=== PATIENT | female | born 1980 | race Two or more races ===

== ENCOUNTER 2021-05-08 12:38 | Outpatient (REF) | payer OTHER, SELFPAY | END 2021-05-08 12:39 | disposition home or self-care (01) | LOC: HO.LAB 12:38 | PROVIDERS: Visit Provider Internal Medicine | DX: Z20.822 Contact with and (suspected) exposure to COVID-19 (principal) | CPT/HCPCS: C9803; U0003; U0005 ==

== ENCOUNTER 2021-09-04 05:25 | Emergency (ER) | payer OTHER, SELFPAY ==
--- NOTE | ~2021-09-04 | CT_ITS ---
EXAMINATION: CT ABDOMEN AND PELVIS WITHOUT CONTRAST CLINICAL INFORMATION: Right flank pain COMPARISON: None TECHNIQUE: Multidetector volumetric imaging was performed from the superior aspect of the liver through the pubic symphysis. Sagittal and coronal reformatted images were obtained on the technologist's workstation. This CT examination was performed using dose optimization techniques as appropriate, variously including the following: *Automated exposure control *Adjustment of mA and/or kV according to patient size (this includes techniques or standardized protocols for targeted exams where dose is matched to indication/reason for exam; i.e. extremities or head) *Use of iterative reconstruction technique DLP: 745 mGy-cm FINDINGS: LUNG BASES: The visualized lung bases are unremarkable. LIVER, GALLBLADDER, AND BILIARY TREE: The liver is normal in size, shape, and attenuation. No focal hepatic lesion or biliary ductal dilatation is present. The gallbladder is unremarkable with no evidence of radiopaque gallstones, gallbladder wall thickening, or obvious pericholecystic inflammatory changes. PANCREAS: Unremarkable. SPLEEN: Unremarkable. ADRENAL GLANDS: Unremarkable. KIDNEYS AND URETERS: Kidneys are normal in appearance without evidence of hydronephrosis or perinephric inflammatory changes. No ureterectasis is visualized. No urolithiasis identified. BLADDER: Decompressed. No calculi. GASTROINTESTINAL TRACT: No intestinal dilatation or mural thickening. Normal appearance of the appendix. Normal appearance of the terminal ileum. No free intraperitoneal fluid or gas collections. Normal appearance of the sigmoid and small bowel mesentery is. ABDOMINAL WALL: No significant hernia is appreciated. LYMPH NODES: Normal. VASCULAR: Unremarkable. PELVIC VISCERA: Normal appearance of uterus. No adnexal lesions. A 3 mm rounded hyperdense focus is present within the region of the distal right posterolateral vaginal wall may represent a small Bartholin's gland cyst (series 3 image 88). OSSEOUS STRUCTURES: Minimal multilevel anterior endplate osteophytosis of the visualized thoracic spine. No vertebral body compression deformities. Mild osteitis condense illi. CT/CT abdomen pelvis wo con IMPRESSION: Unenhanced CT of the abdomen and pelvis: *No acute abnormalities identified. *No urolithiasis. No hydronephrosis. Normal appendix. No free intraperitoneal fluid or gas collections.
[2021-09-04 05:31] VITALS: BP 157/95; PULSE 75; RESP 20; TEMP 36.6; O2SAT 98; BMI 33.5
[2021-09-04 05:52] LABS: Hemoglobin 13.2 g/dl (12.0-16.0); Mean Corpuscular HGB Conc 33.8 g/dl (31.0-35.0); Mean Corpuscular Hemoglobin 27.3 pg (27.0-33.0); Mean Corpuscular Volume 80.6 fL (80.0-98.0); Mean Platelet Volume 9.7 fL (9.4-12.3); Platelet Count 319 X10*3/uL (160-400); Red Blood Count 4.84 X10*6/uL (4.20-5.50); White Blood Count 8.4 X10*3/uL (4.8-10.8)
[2021-09-04 06:07] LABS: Appearance Urine HAZY; Color Urine YELLOW; Glucose Urine UA NEG (NEG); Leukocyte Esterase Urine NEG (NEG); Nitrite Urine NEG (NEG); PH 5.5 (5.0-8.0); Specific Gravity - Urine 1.025 (1.005-1.025); Urine Blood NEG (NEG); Urine Ketones NEG (NEG); Urine Protein NEG (NEG-TRACE)
[2021-09-04 06:09] LABS: UPreg QC Valid YES; Urine Pregnancy NEGATIVE (NEGATIVE)
[2021-09-04 06:11] LABS: Alanine Aminotransferase 14 U/L (0-31); Albumin Level 3.9 g/dL (3.5-5.0); Alkaline Phosphatase 98 U/L (39-117); Anion Gap 10 (12-20); Aspartate Amino Transferase 20 U/L (5-31); Bilirubin Total 0.5 mg/dL (0.0-1.0); Blood Urea Nitrogen 15 mg/dL (9-16); Calcium 9.7 mg/dL (8.4-10.2); Carbon Dioxide 28 mmol/L (22-29); Chloride 104 mmol/L (96-108); Creatinine Clr Calc Pharmacy 102.4; Estimated Glomerular Filt Rate > 60; Glucose Random 90 mg/dL (60-115); Potassium 4.3 mmol/L (3.3-5.1); Sodium 138 mmol/L (135-145); Total Protein 7.4 g/dL (6.5-8.0)
[2021-09-04 06:12] VITALS: BP 143/99; PULSE 73; RESP 16; O2SAT 99
--- NOTE | 2021-09-04 06:32 | ED_ITS ---
HPI - Abdominal Pain General Chief Complaint: Abdominal Pain Stated Complaint: abd & lower back pain, diarrhea ; appendicitis ? Time Seen by Provider: 09/04/21 06:04 Source: patient Mode of arrival: ambulatory History of Present Illness HPI narrative: 41-year-old female presents with 2 days of left flank pain that wraps around into the anterior abdomen that has not been associated with any fever, chills, nausea, vomiting, or urinary pain/frequency/burning and patient reports that she has had a few episodes of nonbloody diarrhea. Related Data Allergies Allergy/AdvReac Type Severity Reaction Status Date / Time No Known Allergies Allergy Verified 09/04/21 05:35 Review of Systems Review of Systems Pertinent positives and negatives as stated in HPI 10 point review of systems is otherwise negative. Physical Exam Verdana 4l Vital Signs: Verdana 4d Verdana 4d Vital Signs: Verdana 4d Verdana 4Bd Last Vital Signs Verdana 4d Vice President Of Operations New 4d Vice President Of Operations New 4d Temp 97.8 F 09/04/21 05:31 Vice President Of Operations New 4d Pulse 73 09/04/21 06:12 Vice President Of Operations New 4d Resp 16 09/04/21 06:12 BP 143/99 H 09/04/21 06:12 Pulse Ox 99 09/04/21 06:12 BMI result Body Mass Index 33.5 VITAL SIGNS: Reviewed. GENERAL: Well developed, well nourished, in no acute distress. HEAD: Normocephalic/atraumatic EYES: PERRLA, EOMI OROPHARYNX: no oral lesions noted, posterior pharynx clear LUNGS: Normal breath sounds. No adventitious sounds or accessory muscle use. SpO2<99> CARDIOVASCULAR: Regular rate and rhythm without noted murmurs ABDOMEN: Soft, left flank pain, non-distended with bowel sounds. NEUROLOGIC: Alert and oriented x 4. Strength and sensation to light touch were grossly intact x 4. Course Course Course Narrative: 41-year-old female with history and clinical presentation after review of all investigations suspicious for renal colic, no evidence or findings suggestive of /UTI/diverticulitis/appendicitis. Signed out to Dr Paulino: f/u CT scan. MDM - Abdominal Pain Lab Data Result diagrams: 09/04/21 05:47 09/04/21 05:47 Labs: Lab Results 02/03/22 02/03/22 02/03/22 Range/Units 05:47 05:47 05:56 WBC 8.4 (4.8-10.8) X10*3/uL RBC 4.84 (4.20-5.50) X10*6/uL Hgb 13.2 (12.0-16.0) g/dl Hct 39.0 (37.0-47.0) % MCV 80.6 (80.0-98.0) fL MCH 27.3 (27.0-33.0) pg MCHC 33.8 (31.0-35.0) g/dl RDW 13.0 (11.0-16.0) % Plt Count 319 (160-400) X10*3/uL MPV 9.7 (9.4-12.3) fL Absolute Nucleated RBC 0.000 (0.0-0.012) X10*3/uL Nucleated RBC % (auto) 0.0 (0.0-0.2) /100WBC Sodium 138 (135-145) mmol/L Potassium 4.3 (3.3-5.1) mmol/L Chloride 104 (96-108) mmol/L Carbon Dioxide 28 (22-29) mmol/L Anion Gap 10 L (12-20) BUN 15 (9-16) mg/dL Creatinine 0.77 (0.5-1.4) mg/dL Estim Creat Clear Calc 102.4 Estimated GFR > 60 Random Glucose 90 (60-115) mg/dL Calcium 9.7 (8.4-10.2) mg/dL Total Bilirubin 0.5 (0.0-1.0) mg/dL AST 20 (5-31) U/L ALT 14 (0-31) U/L Alkaline Phosphatase 98 (39-117) U/L Total Protein 7.4 (6.5-8.0) g/dL Albumin 3.9 (3.5-5.0) g/dL Lipase 38 (8-78) U/L Beta HCG, Quant < 2 mIU/mL Urine Color YELLOW Urine Appearance HAZY Urine pH 5.5 (5.0-8.0) Ur Specific Graham 1.025 (1.005-1.025) Urine Protein NEG (NEG-TRACE) MG/DL Urine Glucose (UA) NEG (NEG) MG/DL Urine Ketones NEG (NEG) MG/DL Urine Blood NEG (NEG) Urine Nitrite NEG (NEG) Ur Leukocyte Esterase NEG (NEG) Urine Test (NEGATIVE) 09/04/21 Range/Units 05:56 WBC (4.8-10.8) X10*3/uL RBC (4.20-5.50) X10*6/uL Hgb (12.0-16.0) g/dl Hct (37.0-47.0) % MCV (80.0-98.0) fL MCH (27.0-33.0) pg MCHC (31.0-35.0) g/dl RDW (11.0-16.0) % Plt Count (160-400) X10*3/uL MPV (9.4-12.3) fL Absolute Nucleated RBC (0.0-0.012) X10*3/uL Nucleated RBC % (auto) (0.0-0.2) /100WBC Sodium (135-145) mmol/L Potassium (3.3-5.1) mmol/L Chloride (96-108) mmol/L Carbon Dioxide (22-29) mmol/L Anion Gap (12-20) BUN (9-16) mg/dL Creatinine (0.5-1.4) mg/dL Estim Creat Clear Calc Estimated GFR Random Glucose (60-115) mg/dL Calcium (8.4-10.2) mg/dL Total Bilirubin (0.0-1.0) mg/dL AST (5-31) U/L ALT (0-31) U/L Alkaline Phosphatase (39-117) U/L Total Protein (6.5-8.0) g/dL Albumin (3.5-5.0) g/dL Lipase (8-78) U/L Beta HCG, Quant mIU/mL Urine Color Urine Appearance Urine pH (5.0-8.0) Ur Specific Graham (1.005-1.025) Urine Protein (NEG-TRACE) MG/DL Urine Glucose (UA) (NEG) MG/DL Urine Ketones (NEG) MG/DL Urine Blood (NEG) Urine Nitrite (NEG) Ur Leukocyte Esterase (NEG) Urine Test NEGATIVE (NEGATIVE) Discharge Plan Discharge Clinical Impression: Flank pain, Diarrhea Patient Disposition: Still a Patient PMFSH Past Medical History Source: nursing notes reviewed Social History Social History Advance Directives: No Advance Directives Information Provided: No
[2021-09-04 06:34] LABS: Lipase 38 U/L (8-78)
[2021-09-04 06:39] LABS: HCG Quantitative < 2 mIU/mL
[2021-09-04] MEDS: Acetaminophen 325 MG TABLET 975 MG PO (07:30)
[2021-09-04] MEDS: Ibuprofen 400 MG TABLET PO (07:31)
== END 2021-09-04 07:41 | disposition home or self-care (01) ==
PROVIDERS: Student in an Organized Health Care Education/Training Program; Emergency Provider Emergency Medicine
DX: R10.9 Unspecified abdominal pain (principal); R19.7 Diarrhea, unspecified
CPT/HCPCS: 36415; 74176; 80053; 81003; 81025; 83690; 84702; 85027; 99284

== ENCOUNTER 2021-10-14 08:28 | Outpatient (REF) | payer OTHER, SELFPAY ==
[2021-10-14 08:45] LABS: MANUAL DIFF FLAG NO
[2021-10-14 09:18] LABS: Basophils Absolute Auto 0.1 X10*3/uL (0.0-0.2); Basophils Percent Auto 1.3 % (0-2); Eosinophils Absolute Auto 0.2 X10*3/uL (0.0-0.4); Eosinophils Percent Auto 2.6 % (0-4); Hematocrit 38.7 % (37.0-47.0); Hemoglobin 12.8 g/dl (12.0-16.0); Imm Gran Abs Auto 0.04 X10*3/uL (0.00-0.03); Imm Gran Pct Auto 0.5 % (0.0-0.4); Lymphocytes Absolute Auto 1.9 X10*3/uL (1.2-4.9); Lymphocytes Percent Auto 24.4 % (20-40); Mean Corpuscular HGB Conc 33.1 g/dl (31.0-35.0); Mean Corpuscular Hemoglobin 26.6 pg (27.0-33.0); Mean Corpuscular Volume 80.3 fL (80.0-98.0); Mean Platelet Volume 9.7 fL (9.4-12.3); Monocytes Absolute Auto 0.5 X10*3/uL (0.1-1.2); Monocytes Percent Auto 6.8 % (2-11); Neutrophils Absolute Auto 5.1 x10*3/uL (2.0-8.3); Neutrophils Percent Auto 64.4 % (45-73); Platelet Count 321 X10*3/uL (160-400); Red Blood Count 4.82 X10*6/uL (4.20-5.50); Red Cell Distribution Width 13.2 % (11.0-16.0)
[2021-10-14 09:33] LABS: Estimated Average Glucose 100 mg/dL; Hemoglobin A1c % 5.1 %
[2021-10-14 09:40] LABS: Alanine Aminotransferase 11 U/L (0-31); Albumin Level 3.8 g/dL (3.5-5.0); Alkaline Phosphatase 94 U/L (39-117); Anion Gap 10 (12-20); Aspartate Amino Transferase 17 U/L (5-31); Bilirubin Total 0.3 mg/dL (0.0-1.0); Blood Urea Nitrogen 10 mg/dL (9-16); Calcium 9.1 mg/dL (8.4-10.2); Carbon Dioxide 29 mmol/L (22-29); Chloride 104 mmol/L (96-108); Cholesterol 186 mg/dL; Estimated Glomerular Filt Rate > 60; Glucose Fasting 96 mg/dL (60-99); HDL Cholesterol 38 mg/dL; LDL Cholesterol Calculated 120 mg/dl; Potassium 4.2 mmol/L (3.3-5.1); Sodium 139 mmol/L (135-145); Total Protein 7.3 g/dL (6.5-8.0); Triglycerides 141 mg/dL
[2021-10-14 09:53] LABS: TSH reflex Free T4 2.06 uIU/mL (0.32-4.0)
[2021-10-14 10:12] LABS: Folate 10.3 ng/mL (> or = 4.0); Vitamin B12 438 pg/mL (200-900)
[2021-10-18 14:11] LABS: Vitamin D 25-OH, D2 <4 ng/mL; Vitamin D 25-OH, D3 24 ng/mL; Vitamin D 25-OH, Total 24 ng/mL (30-100)
== END 2021-10-14 08:29 | disposition home or self-care (01) ==
LOC: HO.LAB 08:28
PROVIDERS: PCP Nurse Practitioner Acute Care; Visit Provider Nurse Practitioner Acute Care
DX: I10 Essential (primary) hypertension (principal)
CPT/HCPCS: 36415; 80053; 80061; 82306; 82607; 82746; 83036; 84443; 85025

== ENCOUNTER → 2021-11-27 10:16 | Outpatient (BNVA) | payer OTHER, SELFPAY | PROVIDERS: PCP Nurse Practitioner Acute Care; Visit Provider Surgery Vascular Surgery | DX: Z13.89 Encounter for screening for other disorder (principal) ==

== ENCOUNTER 2022-05-14 13:13 | Outpatient (REF) | payer OTHER, SELFPAY ==
[2022-05-15 08:25] LABS: HBS Num1 1.74 mIU/mL (0-7.99); HBc Num1 0.06 S/CO (0.00-0.79); HBsAGNum1 0.19 S/CO (0.00-0.99); Hepatitis B Core Antibody Nonreactive (Nonreactive); Hepatitis B Surface Antigen Negative (Negative); ~Hepatitis B Surface Antibody NONREACTIVE (Nonreactive)
[2022-05-18 21:42] LABS: Rubeola IgG (Measles) >300.00 AU/mL
== END 2022-05-14 13:14 | disposition home or self-care (01) ==
LOC: HO.LAB 13:13
PROVIDERS: PCP Internal Medicine; Visit Provider Internal Medicine
DX: Z01.84 Encounter for antibody response examination (principal); Z23 Encounter for immunization
CPT/HCPCS: 36415; 86704; 86706; 86735; 86762; 86765; 86787; 87340

== ENCOUNTER 2022-06-10 09:10 | Outpatient (REF) | payer OTHER, SELFPAY ==
[2022-06-13 13:56] LABS: TS Negative Control Passed; TS Panel A 75; TS Panel B 69; TS Positive Control Passed; TSpotTB Positive (Negative)
== END 2022-06-10 09:11 | disposition home or self-care (01) ==
LOC: HO.LAB 09:10
PROVIDERS: PCP Internal Medicine; Visit Provider Internal Medicine
DX: Z11.1 Encounter for screening for respiratory tuberculosis (principal)
CPT/HCPCS: 36415; 86481

== ENCOUNTER 2022-06-15 09:17 | Outpatient (REF) | payer OTHER, SELFPAY ==
--- NOTE | ~2022-06-15 | XR_ITS ---
EXAMINATION: XR CHEST CLINICAL INFORMATION: Latent tuberculosis COMPARISON: None TECHNIQUE: 2 views of the chest were obtained. FINDINGS: The lungs are well-expanded and clear of acute process. Heart size and pulmonary vascularity is normal. No gross bony abnormality seen. XR/XR chest 2V IMPRESSION: Unremarkable chest examination.
== END 2022-06-15 09:18 | disposition home or self-care (01) ==
LOC: HO.XRAY 09:17
PROVIDERS: PCP Internal Medicine; Visit Provider Internal Medicine
DX: Z22.7 Latent tuberculosis (principal)
CPT/HCPCS: 71046

== ENCOUNTER 2022-11-06 08:57 | Outpatient (REF) | payer OTHER, SELFPAY ==
[2022-11-06 10:15] LABS: Alanine Aminotransferase 10 U/L (0-31); Albumin Level 3.8 g/dL (3.5-5.0); Alkaline Phosphatase 92 U/L (39-117); Anion Gap 8 (12-20); Aspartate Amino Transferase 14 U/L (5-31); Bilirubin Total 0.6 mg/dL (0.0-1.0); Blood Urea Nitrogen 14 mg/dL (9-16); Calcium 8.8 mg/dL (8.4-10.2); Carbon Dioxide 29 mmol/L (22-29); Chloride 108 mmol/L (96-108); Cholesterol 189 mg/dL; Estimated Glomerular Filt Rate > 60; Glucose Fasting 85 mg/dL (60-99); HDL Cholesterol 30 mg/dL; LDL Cholesterol Calculated 140 mg/dl; Potassium 4.2 mmol/L (3.3-5.1); Sodium 141 mmol/L (135-145); Triglycerides 98 mg/dL
[2022-11-06 10:25] LABS: Vitamin D 25-OH Total 27.2 ng/mL (>30)
== END 2022-11-06 08:58 | disposition home or self-care (01) ==
LOC: HO.LAB 08:57
PROVIDERS: PCP Internal Medicine; Visit Provider Internal Medicine
DX: Z00.00 Encounter for general adult medical examination without abnormal findings (principal); E55.9 Vitamin D deficiency, unspecified
CPT/HCPCS: 36415; 80053; 80061; 82306

== ENCOUNTER 2023-04-27 13:53 | Outpatient (AMB) | payer OTHER, SELFPAY ==
--- NOTE | 2023-04-27 13:56 | MHC.PC.OV ---
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: No Allergies No Known Allergies Allergy (Verified 04/27/23 14:16) Medication List - Last Reconciled 04/27/23 by YULIA Carnes No Known Home Meds Tobacco use date assessed: 04/27/23 Dental Screening Dental Screen Date: 04/27/23 Did you have a dental visit in the last 12 months?: Yes Did you have a dental problem in the last 6 months where you did not have access to dental care?: No Was dental information given to patient?: Patient has dentist HPI back and vagina pain, scheduled per nurse HPI Details Patient is a 43-year-old female who presents today for the same day visit due to back and pelvic pain for the past [address] Holman. Medical history significant for hypertension, obesity among others. Patient reports that back pain radiate to her pelvic area. Pain seems to be improving slightly although still there. She reports that pain comes in waves. Also describes pain as throbbing sensation. Bilateral back pain radiate to pelvic area. Reports taking Tylenol as needed with very minimal improvement. Last menstruation 1st week of April. Denies urinary symptoms. No blood in urine, no vaginal discharge, no burning with urination. Denies injury. Denies history of kidney stones in the past. Denies STI exposure. Patient is a Vietnamese-speaking and her was helping with interpretation. Patient denies shortness of breath or chest pain. Reports intermittent shortness of breath on exertion for the past 1.5 months since being sick with COVID. 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 How often do you have a drink containing alcohol?: Never Total Score: 0 Score Reviewed/Action Taken: No NICHELLE-7 AMB Questionnaire NICHELLE-7 Date NICHELLE - 7 assessed: 10/20/22 Source: Developed by Drs. Zion Valadez, Lilli Blount, Arpit Ford and colleagues, with an educational elise from [employer] / [email or web address]. Review of Systems Const Denies body aches, Denies chills, Denies fever(s) and Denies headache(s) Eyes Denies change in vision ENT Denies dizziness, Denies otalgia, Denies headache(s), Denies nasal discharge, Denies sinus pain and Denies sore throat Card Denies chest pain, Denies edema, Denies lightheadedness, Denies dyspnea and Reports dyspnea on exertion Resp Denies cough, Denies dyspnea, Reports dyspnea on exertion and Denies wheezing GI Denies abdominal pain, Denies constipation, Denies diarrhea, Denies nausea and Denies vomiting Details: Bilateral low back pain Reports as per HPI, Denies hematuria and Denies dysuria Musc Reports back pain and Denies myalgias Skin/Breast Denies rash Neuro Denies dizziness and Denies headache(s) Aller/Immun Denies wheezing Physical exam (Primary Care) Vital Signs: Last Vital Signs Pulse 91 04/27/23 13:57 BP 170/114 H 04/27/23 14:30 Pulse Ox 100 04/27/23 13:57 Oxygen Delivery Method Room Air 04/27/23 13:57 BMI result Body Mass Index 32.4 Tobacco/Smoking Status: Tobacco use Status Tobacco use date assessed 04/27/23 04/27/23 13:58 Patient Tobacco Use Status Never used Tobacco 04/27/23 13:58 e-Cigarette/Vaping Use Never Used 04/27/23 13:58 Thrive Assessment: Date of Thrive Assessment Date Thrive assessed 10/20/22 04/27/23 13:58 Const General: cooperative and no acute distress Orientation/consciousness: patient oriented x3 HENMT Head: Yes normocephalic and Yes atraumatic Mouth: oropharynx normal and moist mucous membranes Throat: Yes posterior oropharynx normal Eyes General: appearance normal, both eyes and all related structures Pupils: Equal, round and reactive pupils present Neck Neck: Yes normal visual inspection, Yes full ROM and Yes no lymphadenopathy Resp Effort & Inspection: normal respiratory effort and able to speak in complete sentences Auscultation: clear to auscultation bilaterally, no crackles, no rales, no rhonchi and no wheezes Cardio Rate: regular rate Rhythm: regular rhythm Heart sounds: S1 normal heart sound present and S2 normal heart sound present GI Palpation (GI): Soft to palpation, not firm, Tenderness to palpation present (GI) suprapubicly; with no rebound tenderness, no guarding, not rigid and no hepatosplenomegaly Auscultation: normal bowel sounds General: No CVA tenderness Back/Spine/Pelvis Back: No CVA tenderness Thoracic/Lumbar Spine: thoracic and lumbar spine normal to inspection, No paraspinal muscle tenderness, No thoracic spinal tenderness and lumbar spinal tenderness (Distal aspect) Skin General skin exam: no rashes or lesions noted Neuro General: patient oriented x3 Cranial nerves: Yes Equal, round and reactive pupils present Gait exam (Neuro): Normal gait present Extrem General: Yes full ROM and No edema Results AMB Urinalysis, Automated UA Leukoctes 500 Guillermina/uL Last Edit by SILVANO Badillo on 04/27/23 14:17 UA Nitrite Negative Last Edit by SILVANO Badillo on 04/27/23 14:17 UA Urobilinogen 0.2 mg/dL Last Edit by SILVANO Badillo on 04/27/23 14:17 UA Protein 100 mg/dL Last Edit by SILVANO Badillo on 04/27/23 14:17 UA pH 5.5 Last Edit by SILVANO Badillo on 04/27/23 14:17 UA Blood 200 Reginaldo/uL Last Edit by Heidi Pascal SILVANO on 04/27/23 14:17 UA Specific [place] 1.025 Last Edit by SILVANO Badillo on 04/27/23 14:17 UA Ketone Negative Last Edit by SILVANO Badillo on 04/27/23 14:17 UA Bilirubin 0 mg/dL Last Edit by SILVANO Badillo on 04/27/23 14:17 UA Glucose 0 mg/dL Last Edit by Heidi Pascal SILVANO on 04/27/23 14:17 Results Reviewed Results Reviewed: Laboratory Last Values Urine pH (Auto) 5.5 04/27/23 14:03 Specific [place] (Auto) 1.025 04/27/23 14:03 Urine Protein (Auto) 100 mg/dL 04/27/23 14:03 Glucose (UA)(Auto) 0 mg/dL 04/27/23 14:03 Urine Ketones (Auto) Negative 04/27/23 14:03 Urine Blood (Auto) 200 Reginaldo/uL 04/27/23 14:03 Urine Nitrite (Auto) Negative 04/27/23 14:03 Urine Bilirubin (Auto) 0 mg/dL 04/27/23 14:03 Urine Urobilinogen (Auto) 0.2 mg/dL 04/27/23 14:03 Leukocyte Esterase (Auto) 500 Guillermina/uL 04/27/23 14:03 Assessment and Plan Assessment & Plan (1) Pelvic pain: Code(s): R10.2 - Pelvic and perineal pain Plan: Patient presents with low back pain that radiate to her pelvic area for the past 2 months, she reports that this is slightly improving although still there. Physical exam with suprapubic tenderness and lumbar spinal tenderness distal aspect. Urinalysis positive for leukocytes, protein, and blood. Will send urine for culture. Will obtain urgent renal ultrasound to rule out kidney stones. Will start Bactrim b.i.d. for 7 days. Will provide patient with ibuprofen 600 mg every 6 hours as needed for pain. Encouraged to increase fluid consumption. (2) Hypertension: Code(s): I10 - Essential (primary) hypertension Plan: Goal BP equal or less than 140/90, blood pressure high in the office today, also blood pressure has been high in the past as well Will start lisinopril 10 mg daily-educated about possible adverse reactions and when to notify provider Monitor blood pressures at home Follow-up with nurse in 2 weeks for BP recheck Low-sodium diet and weight loss. Signs and symptoms reviewed when to notify provider go to the emergency department Patient agreed with the plan Orders: Orders AMB Urinalysis Automated Today M54.50 - Low back pain, unspecified Urine Culture Today R10.2 - Pelvic and perineal pain US renal BI Today R10.2 - Pelvic and perineal pain Complete Blood Count Auto Diff Today I10 - Essential (primary) hypertension Comprehensive Met. Panel Today I10 - Essential (primary) hypertension Medications: New sulfamethoxazole-trimethoprim 800-160 mg (Bactrim DS) 1 tab PO Q12H 14 tabs 0RF R10.2 - Pelvic and perineal pain ibuprofen 600 mg PO Q8H PRN 20 tabs 0RF pain R10.2 - Pelvic and perineal pain lisinopril 10 mg PO DAILY 30 tabs 2RF I10 - Essential (primary) hypertension Coding Level of Care Code Est Pt Level 4 (65043) Diagnoses Pelvic pain R10.2 Hypertension I10
[2023-04-27 13:57] VITALS: BP 160/120; PULSE 91; O2SAT 100; BMI 32.4
[2023-04-27 14:30] VITALS: BP 170/114
== END 2023-04-27 14:40 | disposition home or self-care (01) ==
PROVIDERS: PCP Internal Medicine; Visit Provider Nurse Practitioner Family
DX: R10.2 Pelvic and perineal pain (principal); I10 Essential (primary) hypertension; M54.50 Low back pain, unspecified
CPT/HCPCS: 81003; 99214

== ENCOUNTER 2023-04-27 14:31 | Outpatient (REF) | payer OTHER, SELFPAY | END 2023-04-27 14:32 | disposition home or self-care (01) | LOC: HO.LAB 14:31 | PROVIDERS: Visit Provider Nurse Practitioner Family | DX: Z13.89 Encounter for screening for other disorder (principal) ==

== ENCOUNTER 2023-04-27 14:53 | Outpatient (REF) | payer OTHER, SELFPAY ==
[2023-04-27 15:06] LABS: MANUAL DIFF FLAG NO
[2023-04-27 15:24] LABS: Basophils Absolute Auto 0.1 X10*3/uL (0.0-0.2); Basophils Percent Auto 1.2 % (0-2); Eosinophils Absolute Auto 0.2 X10*3/uL (0.0-0.4); Eosinophils Percent Auto 1.4 % (0-4); Hemoglobin 12.7 g/dl (12.0-16.0); Imm Gran Abs Auto 0.04 X10*3/uL (0.00-0.03); Imm Gran Pct Auto 0.4 % (0.0-0.4); Lymphocytes Absolute Auto 2.5 X10*3/uL (1.2-4.9); Lymphocytes Percent Auto 23.3 % (20-40); Mean Corpuscular HGB Conc 33.4 g/dl (31.0-35.0); Mean Corpuscular Hemoglobin 26.6 pg (27.0-33.0); Mean Corpuscular Volume 79.5 fL (80.0-98.0); Mean Platelet Volume 9.8 fL (9.4-12.3); Monocytes Absolute Auto 0.7 X10*3/uL (0.1-1.2); Monocytes Percent Auto 6.4 % (2-11); Neutrophils Absolute Auto 7.1 x10*3/uL (2.0-8.3); Neutrophils Percent Auto 67.3 % (45-73); Platelet Count 292 X10*3/uL (160-400); Red Blood Count 4.78 X10*6/uL (4.20-5.50); Red Cell Distribution Width 14.3 % (11.0-16.0); White Blood Count 10.5 X10*3/uL (4.8-10.8)
[2023-04-27 16:16] LABS: Alanine Aminotransferase 11 U/L (0-31); Albumin Level 3.6 g/dL (3.5-5.0); Alkaline Phosphatase 77 U/L (39-117); Anion Gap 9 (12-20); Aspartate Amino Transferase 20 U/L (5-31); Bilirubin Total 0.4 mg/dL (0.0-1.0); Blood Urea Nitrogen 14 mg/dL (9-16); Calcium 8.9 mg/dL (8.4-10.2); Carbon Dioxide 26 mmol/L (22-29); Chloride 107 mmol/L (96-108); Estimated Glomerular Filt Rate > 60; Glucose Random 82 mg/dL (60-115); Potassium 4.2 mmol/L (3.3-5.1); Sodium 138 mmol/L (135-145); Total Protein 7.2 g/dL (6.5-8.0)
== END 2023-04-27 14:54 | disposition home or self-care (01) ==
LOC: HO.LAB 14:53
PROVIDERS: PCP Internal Medicine; Visit Provider Nurse Practitioner Family
DX: R10.2 Pelvic and perineal pain (principal); I10 Essential (primary) hypertension
CPT/HCPCS: 36415; 80053; 85025; 87086

== ENCOUNTER 2023-05-05 09:56 | Outpatient (REF) | payer OTHER, SELFPAY ==
--- NOTE | ~2023-05-05 | US_ITS ---
EXAMINATION: US RETROPERITONEAL LIMITED (RENAL ONLY) CLINICAL INFORMATION: Pelvic and perineal pain. COMPARISON: None available. TECHNIQUE: Real-time ultrasound of the bilateral kidneys. Permanent documented images obtained. FINDINGS: RIGHT KIDNEY: 10.5 x 4.6 x 5.3 cm (SAG x AP x TRV). The kidney is normal in size, contour, and echogenicity. Renal cortical thickness is normal. No calculi or focal parenchymal lesions. No hydronephrosis. LEFT KIDNEY: 12.4 x 4.3 x 5.3 cm (SAG x AP x TRV). The kidney is normal in size, contour, and echogenicity. Renal cortical thickness is normal. No calculi or focal parenchymal lesions. No hydronephrosis. US/US renal BI IMPRESSION: Unremarkable study.
== END 2023-05-05 09:57 | disposition home or self-care (01) ==
LOC: HO.US 09:56
PROVIDERS: PCP Internal Medicine; Visit Provider Nurse Practitioner Family
DX: R10.2 Pelvic and perineal pain (principal)
CPT/HCPCS: 76775

== ENCOUNTER 2023-05-07 15:06 | Emergency (ER) | payer OTHER, SELFPAY ==
[2023-05-07] VITALS (7 sets, daily range): BP systolic 156–184; BP diastolic 93–116; PULSE 66–100; RESP 16–18; TEMP 36.8; O2SAT 98–100; BMI 32.5
--- NOTE | 2023-05-07 15:17 | ED.DIZZY ---
HPI - Dizziness General Chief Complaint: Syncope Stated Complaint: WEAKNESS SYNCOPAL EPISODE Time Seen by Provider: 05/07/23 15:15 Source: patient, EMS and old records reviewed Mode of arrival: EMS Limitations: no limitations History of Present Illness HPI Narrative: a 43-year-old female brought in by ambulance for evaluation after having a generalized weakness with near syncopal episode. Patient was just started on lisinopril about a week ago by her PCP for blood pressure takes 10 mg daily. Patient was at work today had physical activity patient was jumping up and down felt generalized weakness and almost going to pass out no LOC, patient also declined CP, and SOB. Patient been complaining of right-sided abdominal pain for the past 2 months PCP order renal ultrasound yesterday that was reviewed as unremarkable study. Related Data Previous Rx's Medication Instructions Recorded ibuprofen 600 mg tablet 600 mg PO Q8H PRN pain #20 tabs 04/27/23 lisinopril 10 mg tablet 10 mg PO DAILY #30 tabs 04/27/23 sulfamethoxazole 800 1 tab PO Q12H #14 tabs 04/27/23 mg-trimethoprim 160 mg tablet (Bactrim DS) amlodipine 5 mg tablet 5 mg PO DAILY #30 tabs 05/07/23 Allergies Allergy/AdvReac Type Severity Reaction Status Date / Time No Known Allergies Allergy Verified 04/27/23 14:16 Review of Systems Review of Systems: All other systems are reviewed and are negative Constitutional: Reports as per HPI and Reports no additional constitutional complaints Eyes: Reports as per HPI and Reports no additional eye complaints Reports system reviewed and no additional complaints, except as documented Cardiovascular: Reports as per HPI and Reports no additional cardiovascular complaints Respiratory: Reports as per HPI and Reports no additional respiratory complaints Gastrointestinal: Reports as per HPI and Reports no additional gastrointestinal complaints Genitourinary: Reports no additional female genitourinary complaints Musculoskeletal: Reports no additional musculoskeletal complaints Skin/Breast: Reports system reviewed and no additional complaints, except as docu Psychiatric: Reports no additional psychiatric complaints Endocrine: Reports no additional endocrine complaints Hematologic/Lymphatic: Reports no additional hematologic/lymphatic complaints Allergic/Immunologic: Reports no additional allergic/immunologic complaints Reports system reviewed and no additional complaints, except as documented and Reports Abnormal speech present [facility] Past Medical History Medical History Immunization due Cataract fragments in right eye following surgery 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 No pertinent past surgical history Family History Family History Mother Hypertension Diabetes Father Diabetes Cardiomegaly Social History Social History Housing: Apartment Alcohol intake: never Patient Tobacco Use Status: Never used Tobacco Smoked in Last 30 Days: No e-Cigarette/Vaping Use: Never Used Second Hand Smoke Exposure: No Use of substances other than those prescribed or required for medical reasons: No service: No Current occupational status: employed Current occupational exposures/hazards: No Cognitive needs: No Hearing needs: No Vision needs: Yes (glasses) Physical Exam Vital Signs: Vital Signs: Last Vital Signs Pulse 93 05/07/23 15:27 Resp 18 05/07/23 15:27 BP 156/93 H 05/07/23 15:27 Pulse Ox 100 05/07/23 15:27 O2 Del Method Room Air 05/07/23 15:27 BMI result Body Mass Index 32.5 Vital signs have been reviewed and appear to be correct. Blood pressure elevated. Heart rate normal. Respiratory rate normal. Temperature normal. Oxygen saturation normal. Appearance: Alert. Oriented X3. No acute distress. Head: Normal external exam. Normocephalic. Atraumatic. No Mcmanus signs noted. No raccoon eyes noted Eyes: PERRLA. EOMI. Conjunctiva and sclera normal. Eyelids normal. ENT: TM's Normal. Pharynx normal. Uvula midline. Moist mucous membranes. No trismus noted. No drooling noted. No muffled voice noted. Neck: Normal inspection. Neck supple. FROM. No adenopathy. Thyroid Normal. No meningeal signs. No neck mass noted. CVS: Normal heart rate and rhythm. Heart sound normal. No murmurs noted. Pulses normal throughout. Respiratory: No respiratory distress. Painless inspiration. Breath sounds normal. No wheezes/rales/rhonchi noted. Chest nontender. No accessory muscle usage noted or decreased air movement noted. Abdomen: Soft and nontender. Bowel sounds normal in all 4 quadrants. No distention noted. No organomegaly noted. No visible injury noted. Back: No CVA tenderness. Full range of motion noted. Skin: Skin warm and dry. Normal skin color. Normal skin turgor. No rashes/lesions/lacerations noted. Extremities: No lower extremity edema. Extremities exhibit normal range of motion. Extremities nontender. Neuro: Oriented X 3. Cranial nerve exam: II-XII are grossly intact No motor deficit. No sensory deficit. Reflexes normal. Course Course Course Narrative: a 43-year-old female came in after having near syncopal episode, patient has unremarkable physical exam, started on lisinopril for a week 10 mg daily appear that patient's symptoms is secondary to orthostatic hypotension from lisinopril will stop lisinopril and start the patient on amlodipine 5 mg and follow-up with PCP. Medications Administered Discontinued Medications Generic Name Dose Route Start Last Admin Trade Name Freq PRN Reason Stop Dose Admin Sodium Chloride 1,000 mls @ 999 mls/hr 05/07/23 15:15 05/07/23 15:36 Ns IV 05/07/23 16:15 999 mls/hr .Q1H1M ONE Administration Sodium Chloride 1,000 mls @ 999 mls/hr 05/07/23 15:21 05/07/23 16:37 Ns IV 05/07/23 16:21 999 mls/hr .Q1H1M ONE Administration Medical Decision Making Differential Diagnosis Differential Diagnoses: The differential diagnosis associated with the presentation includes ( orthostatic hypotension, dehydration, electrolyte abnormality, severe anemia, lisinopril side effect, UTI, ACS.) Admission/Observation Consideration of admission/observation: Escalation of care including admission/observation considered Lab Data MDM Lab Attestation statement: I reviewed the patient's lab results. 05/07/23 16:15 05/07/23 16:15 Labs: Lab Results 05/07/23 05/07/23 Range/Units 16:14 16:15 WBC 10.5 (4.8-10.8) X10*3/uL RBC 4.65 (4.20-5.50) X10*6/uL Hgb 12.5 (12.0-16.0) g/dl Hct 36.9 L (37.0-47.0) % MCV 79.4 L (80.0-98.0) fL MCH 26.9 L (27.0-33.0) pg MCHC 33.9 (31.0-35.0) g/dl RDW 14.5 (11.0-16.0) % Plt Count 280 (160-400) X10*3/uL MPV 10.0 (9.4-12.3) fL Immature Gran % (Auto) 0.3 (0.0-0.4) % Neut % (Auto) 69.9 (45-73) % Lymph % (Auto) 19.9 L (20-40) % Tyrrell % (Auto) 7.0 (2-11) % Eos % (Auto) 1.6 (0-4) % Baso % (Auto) 1.3 (0-2) % Lymph # (Auto) 2.1 (1.2-4.9) X10*3/uL Tyrrell # (Auto) 0.7 (0.1-1.2) X10*3/uL Eos # (Auto) 0.2 (0.0-0.4) X10*3/uL Baso # (Auto) 0.1 (0.0-0.2) X10*3/uL Abs Immat Gran (auto) 0.03 (0.00-0.03) X10*3/uL Absolute Neuts (auto) 7.3 (2.0-8.3) x10*3/uL Absolute Nucleated RBC 0.000 (0.0-0.012) X10*3/uL Nucleated RBC % (auto) 0.0 (0.0-0.2) /100WBC Sodium 142 (135-145) mmol/L Potassium 4.3 (3.3-5.1) mmol/L Chloride 112 H (96-108) mmol/L Carbon Dioxide 25 (22-29) mmol/L Anion Gap 9 L (12-20) BUN 17 H (9-16) mg/dL Creatinine 0.69 (0.5-1.4) mg/dL Estim Creat Clear Calc 114.2 Estimated GFR > 60 Random Glucose 86 (60-115) mg/dL Calcium 8.5 (8.4-10.2) mg/dL Total Bilirubin 0.1 (0.0-1.0) mg/dL Direct Bilirubin < 0.2 (0.0-0.5) mg/dL AST 18 (5-31) U/L ALT 12 (0-31) U/L Alkaline Phosphatase 81 (39-117) U/L Troponin I High Sens 3.1 (<3.5-17.0) ng/L B-Natriuretic Peptide 216 H (<100) pg/mL Total Protein 7.0 (6.5-8.0) g/dL Albumin 3.6 (3.5-5.0) g/dL Lipase 65 (8-78) U/L Urine Color Yellow Urine Appearance Clear Urine pH 7.0 (5.0-9.0) Ur Specific [place] 1.010 (1.005-1.025) Urine Protein 30 (1+) H (Neg-Trace) mg/dL Urine Glucose (UA) Negative (Negative) mg/dL Urine Ketones Negative (Negative) mg/dL Urine Blood Moderate (2+) H (Negative) Urine Nitrite Negative (Negative) Ur Leukocyte Esterase Trace H (Negative) Urine RBC 6-10 H (0-2) /HPF Urine WBC 0-5 (0-5) /HPF Ur Squamous Epith Cells 6-10 (0-2) /HPF Urine Bacteria Trace (None Seen) Hyaline Casts 3-5 (0-2) /LPF Urine Test NEGATIVE (NEGATIVE) Influenza Type A (PCR) NEGATIVE (Negative) Influenza Type B (PCR) NEGATIVE (Negative) RSV RNA Qual (PCR) NEGATIVE (Negative) SARS-CoV-2 RNA (RT-PCR) NEGATIVE (Negative) Independent Interpretation I performed an independent interpretation of an: EKG ( Normal sinus rhythm at 86 beats per minutes, left axis deviation, normal intervals, no ST-T changes.) and Plain X-Ray ( chest: Unremarkable chest x-ray.) Interpretation: Radiology Impression Discussion of test interpretation with radiology: I have reviewed the radiologist's reading. Discharge Plan Discharge Clinical Impression: Orthostatic syncope Patient Disposition: Home, Self-Care Instructions: Syncope (ED) Additional Instructions: stop taking lisinopril 10 mg daily ( the new medicine for your high blood pressure). And take the new prescription as instructed. Prescriptions: New amlodipine 5 mg tablet 5 mg PO DAILY Qty: 30 0RF Rx Instructions: a stop taking lisinopril. No Action sulfamethoxazole-trimethoprim [Bactrim DS] 800-160 mg tablet 1 tab PO Q12H Qty: 14 0RF ibuprofen 600 mg tablet 600 mg PO Q8H PRN (Reason: pain) Qty: 20 0RF lisinopril 10 mg tablet 10 mg PO DAILY Qty: 30 2RF
--- NOTE | 2023-05-07 15:23 | PC.NURSE ---
Patient arrived via ems after feeling weak and bouncing on a bounce house. Patient and daughter report that they are unsure if she passed but if she did it was only for 2-3 seconds. Denies pain or discomfort, sob, or chest pain. Reports was was dx with htn last week and was started on lisinopril
[2023-05-07 16:24] LABS: MANUAL DIFF FLAG NO
[2023-05-07 16:25] LABS: Basophils Absolute Auto 0.1 X10*3/uL (0.0-0.2); Basophils Percent Auto 1.3 % (0-2); Eosinophils Absolute Auto 0.2 X10*3/uL (0.0-0.4); Eosinophils Percent Auto 1.6 % (0-4); Hematocrit 36.9 % (37.0-47.0); Hemoglobin 12.5 g/dl (12.0-16.0); Imm Gran Abs Auto 0.03 X10*3/uL (0.00-0.03); Imm Gran Pct Auto 0.3 % (0.0-0.4); Lymphocytes Absolute Auto 2.1 X10*3/uL (1.2-4.9); Lymphocytes Percent Auto 19.9 % (20-40); Mean Corpuscular HGB Conc 33.9 g/dl (31.0-35.0); Mean Corpuscular Hemoglobin 26.9 pg (27.0-33.0); Mean Corpuscular Volume 79.4 fL (80.0-98.0); Monocytes Absolute Auto 0.7 X10*3/uL (0.1-1.2); Neutrophils Absolute Auto 7.3 x10*3/uL (2.0-8.3); Neutrophils Percent Auto 69.9 % (45-73); Platelet Count 280 X10*3/uL (160-400); Red Blood Count 4.65 X10*6/uL (4.20-5.50); Red Cell Distribution Width 14.5 % (11.0-16.0); White Blood Count 10.5 X10*3/uL (4.8-10.8)
[2023-05-07 16:27] LABS: Appearance Urine Clear; Color Urine Yellow; Glucose Urine UA Negative (Negative); Leukocyte Esterase Urine Trace (Negative); Nitrite Urine Negative (Negative); UMIC TRIGGER UACC YES; Urine Blood Moderate (2+) (Negative); Urine Ketones Negative (Negative); Urine Protein 30 (1+) mg/dL (Neg-Trace)
[2023-05-07 16:32] LABS: Bacteria Urine Trace (None Seen); WBC Urine 0-5 /HPF (0-5)
[2023-05-07 16:46] LABS: Troponin-I High Sensitivity 3.1 ng/L (<3.5-17.0)
--- NOTE | 2023-05-07 17:26 | PC.NURSE ---
Patient reports feeling better after completion of first bag of fluids, vss.
--- NOTE | 2023-05-07 18:46 | PC.NURSE ---
Resting comfortably, breathing even and unlabored
[2023-05-07 19:44] LABS: Troponin-I High Sensitivity 4.2 ng/L (<3.5-17.0)
--- NOTE | 2023-05-07 21:21 | PC.NURSE ---
BP elevated 164/102 and HR 81 at time of discharge. Discussed with and he will order 1 dose 5mg amlodipine for patient now and she will be able to discharge after she receives medication.
== END 2023-05-07 21:50 | disposition home or self-care (01) ==
PROVIDERS: Emergency Provider Emergency Medicine; PCP Internal Medicine
DX: I95.1 Orthostatic hypotension (principal); Z79.899 Other long term (current) drug therapy; Z11.52 Encounter for screening for COVID-19; Z20.828 Contact with and (suspected) exposure to other viral communicable diseases
CPT/HCPCS: 0241U; 36415; 71045; 80048; 80076; 81001; 81025; 83690; 83880; 84484; 85025; 93005; 96360; 96361; 99284; 99285

== ENCOUNTER 2023-05-27 13:09 | Outpatient (AMB) | payer OTHER, SELFPAY ==
--- NOTE | 2023-05-27 13:11 | MHC.PC.OV ---
Vital Signs 05/27/23 13:12 05/27/23 13:21 Height 5 ft 5 in Weight 186 lb BMI 30.9 BP 144/88 H 120/80 Blood Pressure Location Lt brachial Lt brachial Position Sitting Sitting Pulse 88 Pulse Source Pulse Oximeter Pulse Oximetry (%) 98 Oxygen Delivery Method Room Air Intake Visit Reasons: Ongoing pelvic & perineal pain Intake Note: Patient is here today for ongoing pelvic, perineal pain radiating to lower back, on going for three months Counter Manager Required: Yes Counter Manager Language: Awnings Mechanic Name: Fausto (friend) Information Interpreted: non-clinical & clinical Doctor Of Osteopathy: Present Accompanied by: Friend Allergies No Known Allergies Allergy (Verified 05/27/23 15:11) Medication List - Last Reconciled 05/27/23 by Renzo Perez MD amlodipine 5 mg PO DAILY cyclobenzaprine 10 mg PO BEDTIME ibuprofen 600 mg PO Q8H PRN lisinopril 10 mg PO DAILY meloxicam 15 mg PO DAILY Tobacco use date assessed: 05/27/23 Dental Screening Dental Screen Date: 05/27/23 Did you have a dental visit in the last 12 months?: Yes Did you have a dental problem in the last 6 months where you did not have access to dental care?: No Was dental information given to patient?: Patient has dentist HPI Ongoing pelvic & perineal pain HPI Details 43 yr old female presents to the office to discuss her sx of back pain. She is accompanied by a male who is translating. Patient reports sx of back pain for the past three months. The pain is in the lower back, radiating to the area of the abdomen below the umbilicus. Pain is worse on bending forwards. She is a preschool disability teacher and sx are worse, when she has to bend and take care of young kids. No difficulties passing urine. She reports no symptoms of pelvic or vaginal pain. Since onset of sx she has had an ultrasound of the kidneys, Chest X ray and blood work. They have been unremarkable. Currently she is on no medications. Compliant with her regular medications. 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 No pertinent past surgical history Family History Mother Hypertension Diabetes Father Diabetes Cardiomegaly Social History Housing: Apartment Alcohol intake: never Patient Tobacco Use Status: Never used Tobacco e-Cigarette/Vaping Use: Never Used Second Hand Smoke Exposure: No service: No Current occupational status: employed Current occupational exposures/hazards: No Cognitive needs: No Hearing needs: No Vision needs: Yes (glasses) Questionnaire Thrive Questionnaire Date Thrive assessed: 10/20/22 NICHELLE-7 AMB Questionnaire NICHELLE-7 Date NICHELLE - 7 assessed: 10/20/22 Source: Developed by Drs. Zion Valadez, Lilli Blount, Arpit Ford and colleagues, with an educational elise from [employer]. Physical exam (Primary Care) Vital Signs: Last Vital Signs Pulse 88 05/27/23 13:12 BP 120/80 05/27/23 13:21 Pulse Ox 98 05/27/23 13:12 Oxygen Delivery Method Room Air 05/27/23 13:12 BMI result Body Mass Index 30.9 Tobacco/Smoking Status: Tobacco use Status Tobacco use date assessed 05/27/23 05/27/23 13:20 Patient Tobacco Use Status Never used Tobacco 05/27/23 13:20 e-Cigarette/Vaping Use Never Used 05/27/23 13:20 Thrive Assessment: Date of Thrive Assessment Date Thrive assessed 10/20/22 05/27/23 13:20 Const General: cooperative and healthy appearing Nutritional Appearance: well nourished Orientation/consciousness: patient oriented x3 Limitations: no limitations HENMT Head: Yes normal to inspection Eyes General: appearance normal, both eyes and all related structures Neck Neck: Yes normal visual inspection Chest Chest palpation & inspection: normal palpation of entire chest wall Resp Effort & Inspection: normal respiratory effort Back/Spine/Pelvis Other: No spinal tenderness. No paraspinal spasm Neuro General: patient oriented x3 Results Reviewed Results Reviewed: Lab shows elevated BNP. US kidney is normal. Assessment and Plan Assessment & Plan (1) Low back pain: Code(s): M54.50 - Low back pain, unspecified Plan: Sx could represent muscular pain. BW to rule out inflammation, and PT eval suggested. Meloxicam and cyclobenzaprine has been added. To return in three weeks for a follow up. Orders: Orders B Type Natriuretic Peptide Today M54.50 - Low back pain, unspecified Erythrocyte Sedimentation Rate Today M54.50 - Low back pain, unspecified PT Evaluation and Treatment Today M54.50 - Low back pain, unspecified Medications: New cyclobenzaprine 10 mg PO BEDTIME 14 tabs 0RF meloxicam 15 mg PO DAILY 14 tabs 0RF Coding Level of Care Code Est Pt Level 4 (60442) Diagnoses Low back pain M54.50
[2023-05-27 13:12] VITALS: BP 144/88; PULSE 88; O2SAT 98; BMI 30.9
[2023-05-27 13:21] VITALS: BP 120/80
== END 2023-05-27 14:28 | disposition home or self-care (01) ==
PROVIDERS: PCP Internal Medicine; Visit Provider Internal Medicine
DX: M54.50 Low back pain, unspecified (principal)
CPT/HCPCS: 99214

== ENCOUNTER 2023-06-08 16:16 | Outpatient (AMB) | payer OTHER, SELFPAY ==
--- NOTE | 2023-06-08 16:20 | A.OFFPC_ITS ---
Vital Signs 06/08/23 16:21 06/09/23 09:44 Height 5 ft 5 in Weight 189 lb BMI 31.4 BP 176/120 H 170/100 H Blood Pressure Location Lt brachial Lt brachial Position Sitting Sitting Pulse 76 Pulse Source Pulse Oximeter Pulse Oximetry (%) 99 Oxygen Delivery Method Room Air Intake Visit Reasons: [facility] ED F/U-Syncope Intake Note: Patient here for [facility] ED f/u Syncope, ? if had MMR vaccine Technical Applications Scientist Required: No Accompanied by: Spouse Allergies No Known Allergies Allergy (Verified 06/08/23 16:45) Medication List - Last Reconciled 06/08/23 by Shawna Sy MD amlodipine 5 mg PO DAILY Tobacco use date assessed: 05/27/23 Dental Screening Dental Screen Date: 06/08/23 Did you have a dental visit in the last 12 months?: Yes Did you have a dental problem in the last 6 months where you did not have access to dental care?: No Was dental information given to patient?: Patient has dentist HPI HPI Comments History of Present Illness Details This is a 43-year-old female with hypertension and latent tuberculosis by blood test that comes today for follow-up on blood pressure which has been elevated. She went to ER due to an episode of near-syncope in which was associated with tachycardia and generalized weakness. Holter monitor will be order. On amlodipine 5 mg for blood pressure which she took few minutes ago. We will increase amlodipine to 10 mg. She also complains of lumbar pain that does not radiate to the legs and will have x-ray of lumbar spine and physical therapy. Has latent tuberculosis by blood test that was done a year ago. Was given isoniazid with vitamin B6 which she did not took. She agrees on been referred to [facility] tuberculosis [facility]. Denies any fever, night sweats or cough. Accompanied by . 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 No pertinent past surgical history Family History Mother Hypertension Diabetes Father Diabetes Cardiomegaly Social History Housing: Apartment Alcohol intake: never Patient Tobacco Use Status: Never used Tobacco e-Cigarette/Vaping Use: Never Used Second Hand Smoke Exposure: No service: No Current occupational status: employed Current occupational exposures/hazards: No Cognitive needs: No Hearing needs: No Vision needs: Yes (glasses) Questionnaire Thrive Questionnaire Date Thrive assessed: 10/20/22 NICHELLE-7 AMB Questionnaire NICHELLE-7 Date NICHELLE - 7 assessed: 10/20/22 Source: Developed by Drs. Zion Valadez, Lilli Blount, Arpit Ford and colleagues, with an educational elise from [employer]. Review of Systems Const All systems reviewed & are unremarkable except as noted in HPI and below Eyes Reports no additional complaints, Denies change in vision and Denies other visual disturbances Card Denies chest pain at rest, Denies chest pain with activity, Reports rapid heart rate, Denies edema, Denies irregular heart rhythm, Denies claudication, Denies dyspnea, Denies dyspnea on exertion, Denies orthopnea, Denies paroxysmal nocturnal dyspnea and Denies slow heart rate Resp Denies cough, Denies dyspnea and Denies dyspnea on exertion GI Denies abdominal pain, Denies change in bowel habits, Denies excessive flatus, Denies nausea and Denies vomiting Denies urinary incontinence, Denies urinary hesitancy and Denies urinary urgency Musc Denies abnormal gait, Reports back pain, Denies atrophy, Denies deformity and Denies limited range of motion Skin/Breast Denies bleeding lesions, Denies changing lesions and Denies rash Neuro Denies abnormal gait and Denies lack of coordination Physical exam (Primary Care) Vital Signs: Last Vital Signs Pulse 76 06/08/23 16:21 BP 176/120 H 06/08/23 16:21 Pulse Ox 99 06/08/23 16:21 Oxygen Delivery Method Room Air 06/08/23 16:21 BMI result Body Mass Index 31.4 Tobacco/Smoking Status: Tobacco use Status Tobacco use date assessed 05/27/23 06/08/23 16:26 Patient Tobacco Use Status Never used Tobacco 06/08/23 16:26 e-Cigarette/Vaping Use Never Used 06/08/23 16:26 Thrive Assessment: Date of Thrive Assessment Date Thrive assessed 10/20/22 06/08/23 16:26 Eyes General: appearance normal, both eyes and all related structures Eyelids: Yes eyelids normal Conjunctivae: conjunctivae normal Neck Neck: Yes normal visual inspection and Yes supple Resp Effort & Inspection: normal respiratory effort Auscultation: clear to auscultation bilaterally Cardio Jugular venous distension: no JVD Rate: regular rate Rhythm: regular rhythm Heart sounds: S1 normal heart sound present and S2 normal heart sound present Extrem General: Yes full ROM Office Procedures Flu Questionnaire Does the patient have a severe egg allergy?: No Immunizations flu vacc [id number] 6mos up(PF) 60 mcg(15 mcgx4)/0.5 mL IM syringe Performing Provider: Shawna Sy MD [facility] Documented (not given) by: SILVANO Sood on 06/08/23 16:57 Reason Not Given: Not Given Assessment and Plan Assessment & Plan (1) Hypertension: Code(s): I10 - Essential (primary) hypertension Plan: Increase amlodipine to 10 mg. Recheck blood pressure with nurse navigator in 3 weeks. Blood pressure goal is equal or less than 130/80. (2) Latent tuberculosis by blood test: Code(s): Z22.7 - Latent tuberculosis Plan: Referred to [facility] tuberculosis [facility]. (3) Lumbar pain: Code(s): M54.50 - Low back pain, unspecified Plan: X-ray ordered. Start physical therapy for (4) Tachycardia: Code(s): R00.0 - Tachycardia, unspecified Plan: Holter monitor ordered. Orders: Orders Influenza [id number] Immunization 06/08/23 Z23 - Encounter for immunization XR lumbar spine 2-3V 06/08/23 M54.50 - Low back pain, unspecified ECG holter monitor 48 hour 06/08/23 R00.0 - Tachycardia, unspecified PT Evaluation and Treatment 06/08/23 M54.50 - Low back pain, unspecified Referrals Pulmonology Referral Z22.7 - Latent tuberculosis Medications: New amlodipine 10 mg PO DAILY 90 days 90 tabs 1RF Discontinued amlodipine a stop taking lisinopril. Discontinued Reason: Patient Completed Course 5 mg PO DAILY 30 tabs 0RF Coding Level of Care Code Est Pt Level 4 (02502) Diagnoses Hypertension I10 Latent tuberculosis by blood test Z22.7 Lumbar pain M54.50 Tachycardia R00.0 Time Spent (min) 23
[2023-06-08 16:21] VITALS: BP 176/120; PULSE 76; O2SAT 99; BMI 31.4
[2023-06-09 09:44] VITALS: BP 170/100
== END 2023-06-08 16:55 | disposition home or self-care (01) ==
PROVIDERS: PCP Internal Medicine; Visit Provider Internal Medicine
DX: I10 Essential (primary) hypertension (principal); Z22.7 Latent tuberculosis; M54.50 Low back pain, unspecified; R00.0 Tachycardia, unspecified
CPT/HCPCS: 99214

== ENCOUNTER 2023-06-17 08:59 | Outpatient (AMB) | payer OTHER, SELFPAY ==
[2023-06-17 09:08] VITALS: BP 146/94; BMI 31.2
--- NOTE | 2023-06-17 09:08 | A.OFFVIS_ITS ---
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 It's intermittent in nature lasting few seconds and occurs 3x/day. it is not associated with constipation, dysuria, no urinary frequency or incontinence, no n/v, no feverishness or chills. 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 No pertinent past surgical history Family History Mother Hypertension Diabetes Father Diabetes Cardiomegaly Social History Housing: Apartment Alcohol intake: never Patient Tobacco Use Status: Never used Tobacco e-Cigarette/Vaping Use: Never Used Second Hand Smoke Exposure: No service: No Current occupational status: employed Current occupational exposures/hazards: No Cognitive needs: No Hearing needs: No Vision needs: Yes (glasses) Female Reproductive History Menstrual Date of last menstrual period: 05/29/23 Review of Systems Const All systems reviewed & are unremarkable except as noted in HPI and below Physical Exam Vital Signs: Last Vital Signs BP 146/94 H 06/17/23 09:08 BMI result Body Mass Index 31.2 General: Yes no CVA tenderness External Female Exam: normal external appearance and normal appearance of the urethra Speculum Exam - Vagina: normal appearance of the vagina, normal palpation, no lesions and no masses Speculum Exam - Cervix: normal appearance of the cervix, normal palpation, no lesions, no masses and nontender Bimanual exam- vagina & uterus: normal bimanual exam, normal palpation, uterine size normal, normal palpation, uterine shape normal, No Cervical tenderness present and non-tender Bimanual Exam- Adnexa, other: normal adnexae Back/Spine/Pelvis Back: no CVA tenderness Assessment & Plan Assessment & Plan (1) Pelvic pain: Code(s): R10.2 - Pelvic and perineal pain Plan: Urine test done was negative. GC and chlamydia taken and pelvic ultrasound ordered. Discussed with the patient the differential diagnosis of pelvic pain including but not limited to adnexal, uterine masses, pelvic infections (PID), GI the (Irritable bowel syndrome, diverticulitis, others), musculoskeletal, myofascial pain abdominal wall , adhesions, endometriosis, psychological and others causes. Will check results and treat accordingly. All questions answered, the patient verbalized understanding. Instructed the patient to schedule follow-up appointment in 2 weeks (2) Microscopic hematuria: Code(s): R31.29 - Other microscopic hematuria Plan: Urine dip showed microscopic hematuria, will send urine for culture and repeat urine dip in 2 weeks. If urine culture is negative and microscopic hematuria is persistent, will refer to Urology Orders: Orders US pelvic and transvaginal Today R10.2 - Pelvic and perineal pain Coding Level of Care Code New Pt Level 3 (54588) Diagnoses Pelvic pain R10.2 Microscopic hematuria R31.29
== END 2023-06-17 09:39 | disposition home or self-care (01) ==
PROVIDERS: PCP Internal Medicine; Visit Provider Obstetrics & Gynecology
DX: R10.2 Pelvic and perineal pain (principal); R31.29 Other microscopic hematuria; Z32.02 Encounter for pregnancy test, result negative
CPT/HCPCS: 99203

== ENCOUNTER 2023-06-17 08:59 | Outpatient (REF) | payer OTHER, SELFPAY ==
[2023-06-17 13:37] LABS: CT PCR NOT DETECTED (Not Detect.); NG PCR NOT DETECTED (Not Detect.)
== END 2023-06-17 09:00 | disposition home or self-care (01) ==
LOC: HO.LNP 08:59
PROVIDERS: PCP Internal Medicine; Visit Provider Obstetrics & Gynecology
DX: R31.29 Other microscopic hematuria (principal); R10.2 Pelvic and perineal pain
CPT/HCPCS: 0353U; 81002; 81025; 87086

== ENCOUNTER 2023-06-17 10:05 | Outpatient (AMB) | payer OTHER, SELFPAY ==
--- NOTE | 2023-06-17 10:09 | AM.OFFVISNUR ---
Intake Intake Visit Reasons: Flu Shot Allergies No Known Allergies Allergy (Verified 06/17/23 09:12) Office Procedures Flu Questionnaire Does the patient have a severe egg allergy?: No Does the patient have severe life threatening allergies?: No Does the patient have a fever or illness today?: No Has the patient ever had Guillain-Gardiner Syndrome?: No Has the patient ever had any past reaction to a flu shot?: No Immunizations flu vacc [id number] 6mos up(PF) 60 mcg(15 mcgx4)/0.5 mL IM syringe Performing Provider: Shawna Sy MD Performing Location: [facility] Administered by: Shaylee Hernandez RN on 06/17/23 10:16 Dose Route Admin Location Dispensed Lot Number Expiration Date NDC Land Commissioner 0.5 mL IM Left Deltoid 0.5 mL [id number] 01/30/24 83488-999-12 Table8 VIS Given Date VIS Provided VIS Publication Date 06/17/23 Single Vaccine 21 Eligibility Eligibility Date Funding Source Not [facility] Eligible 06/17/23 Private Coding Assessment & Plan Assessment & Plan Orders: Orders Influenza 3112-0925 Immunization Today Z23 - Encounter for immunization
== END 2023-06-17 10:20 | disposition home or self-care (01) ==
PROVIDERS: PCP Internal Medicine; Visit Provider Internal Medicine
DX: Z23 Encounter for immunization (principal)
CPT/HCPCS: 90471; 90686

== ENCOUNTER → 2023-06-21 11:27 | Outpatient (REF) | payer OTHER, SELFPAY ==
--- NOTE | 2023-06-21 11:29 | HM_ITS ---
* Total monitoring time 2 days. * Underlying rhythm is sinus. Average ventricular rate 93/Min. Range 75 to 137/Min. * Rare supraventricular and ventricular ectopy. * No sustained arrhythmias. * No significant pauses or AV blocks. * No patient markers or events in diary. MTDD
== END ==
LOC: HO.CARD 11:27
PROVIDERS: PCP Internal Medicine; Visit Provider Internal Medicine
DX: R00.0 Tachycardia, unspecified (principal); I49.3 Ventricular premature depolarization
CPT/HCPCS: 93225

== ENCOUNTER → 2023-06-21 11:29 | Outpatient (BNV) | payer OTHER, SELFPAY | PROVIDERS: PCP Internal Medicine; Visit Provider Internal Medicine | DX: I47.10 Supraventricular tachycardia, unspecified (principal) | CPT/HCPCS: 93227 ==

== ENCOUNTER 2023-07-16 11:19 | Outpatient (REF) | payer OTHER, SELFPAY ==
--- NOTE | ~2023-07-16 | US_ITS ---
EXAMINATION: US PELVIS CLINICAL INFORMATION: Pelvic and perineal pain. COMPARISON: CT abdomen and pelvis 09/04/2021. TECHNIQUE: Ultrasound of the pelvis is performed using both transabdominal and transvaginal transducers along with Doppler. Transvaginal imaging is performed due to inadequate visualization transabdominally. FINDINGS: UTERUS: The uterus is anteverted and measures 8.2 x 4.9 x 6.1 cm. The double wall endometrial thickness is 0.9 mm. The uterus is smooth in contour and has normal myometrial echogenicity. A single fibroid is noted on the right measuring 1.4 x 1.2 x 1.0 cm. Nabothian cysts are seen in the cervix with the largest measuring 1.2 cm. Some have associated calcifications. ADNEXA: Both ovaries are visualized. There is normal color flow to the adnexa. There is no ovarian torsion. There is no pelvic ascites or fluid collection. Right ovary measures 2.8 x 2.0 x 1.8 cm for a volume of 5.3 mL. Left ovary measures 2.6 x 1.3 x 1.9 cm for a volume of 3.4 mL. US/US pelvic and transvaginal IMPRESSION: 1. Uterine fibroid. 2. Nabothian cysts.
== END 2023-07-16 11:20 | disposition home or self-care (01) ==
LOC: HO.US 11:19
PROVIDERS: PCP Internal Medicine; Visit Provider Obstetrics & Gynecology
DX: R10.2 Pelvic and perineal pain (principal)
CPT/HCPCS: 76830; 76856

== ENCOUNTER 2023-07-23 10:20 | Outpatient (AMB) | payer OTHER, SELFPAY ==
--- NOTE | 2023-07-23 10:20 | MHC.OFFVIS ---
Intake Intake Visit Reasons: TV US follow up Event Marketing Assistant Required: Yes Event Marketing Assistant Language: Greenlandic Allergies No Known Allergies Allergy (Verified 07/23/23 10:20) Is last menstrual period known: Yes Last menstrual period: 07/20/23 Post menopausal: No HPI TV US follow up HPI Details This is a tele visit to discuss an ultrasound that was ordered by Dr. Alex after visit with him in June the patient had been seen as she describes it for problem with lowered pelvic pain. She also had cultures for infection done and I urinalysis was sent because there was microscopic hematuria noted. The patient did not wish to speak with Dr. Alex today and was assigned to nm. 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 No pertinent past surgical history Family History Mother Hypertension Diabetes Father Diabetes Cardiomegaly Social History Housing: Apartment Alcohol intake: never Patient Tobacco Use Status: Never used Tobacco e-Cigarette/Vaping Use: Never Used Second Hand Smoke Exposure: No service: No Current occupational status: employed Current occupational exposures/hazards: No Cognitive needs: No Hearing needs: No Vision needs: Yes (glasses) Female Reproductive History Menstrual Duration of menses: <3 days Date of last menstrual period: 07/20/23 control method: none Results Reviewed Results Reviewed: Patient: Courtney Hampton MR#: [id number] : 1980 Acct:[id number] Age/Sex: 43 ADM Date: 07/16/23 Loc: HO.US Attending Dr: César Alex MD Ordering Physician: César Alex MD Date of Service: 07/16/23 Procedure(s): US pelvic and transvaginal Accession Number(s): [id number] cc: Shawna Queen MD; César Alex MD~ EXAMINATION: US PELVIS CLINICAL INFORMATION: Pelvic and perineal pain. COMPARISON: CT abdomen and pelvis 09/04/2021. TECHNIQUE: Ultrasound of the pelvis is performed using both transabdominal and transvaginal transducers along with Doppler. Transvaginal imaging is performed due to inadequate visualization transabdominally. FINDINGS: UTERUS: The uterus is anteverted and measures 8.2 x 4.9 x 6.1 cm. The double wall endometrial thickness is 0.9 mm. The uterus is smooth in contour and has normal myometrial echogenicity. A single fibroid is noted on the right measuring 1.4 x 1.2 x 1.0 cm. Nabothian cysts are seen in the cervix with the largest measuring 1.2 cm. Some have associated calcifications. ADNEXA: Both ovaries are visualized. There is normal color flow to the adnexa. There is no ovarian torsion. There is no pelvic ascites or fluid collection. Right ovary measures 2.8 x 2.0 x 1.8 cm for a volume of 5.3 mL. Left ovary measures 2.6 x 1.3 x 1.9 cm for a volume of 3.4 mL. US/US pelvic and transvaginal IMPRESSION: 1. Uterine fibroid. 2. Nabothian cysts. Dictated By: Ramesh Graham MD Signed By: <Electronically signed by Ramesh Graham MD in OV> 07/22/232228 DD/ 1159 TD/TT: County Auditor: CURT Name: Courtney Hampton Age/Sex: 43/F : 1980 Unit#: [id number] Attend Dr: César Alex MD Re06/17/23 Status: DEP REF Location: [facility] Disch: Specimen: [id number] Collected: 06/17/23 Status: COMP Req#: [id number] Received: 06/17/23120 Source: [facility] Sp Desc: Clean Cat Subm Dr: César Alex MD Ordered: Urine Culture Procedure Result Verified Site Urine Culture Final 06/18/23 Report Result < 10,000 cfu/ml Name: Courtney Hampton Age/Sex: 43/F : 1980 Unit#: [id number] Attend Dr: César Alex MD Re06/17/23 Status: DEP REF Location: [facility] Disch: SPEC : [id number] CARMEN: 06/17/23 STATUS: COMP REQ : [id number] RECD: 06/17/23 [facility] DR: César Alex MD COMP: 06/17/23 ENTERED: 06/17/23 [facility] DR: Shawna Queen MD ORDERED: CT NG by PCR QUERIES: CT NG Source: Vaginal Test Result Flag Reference Site CT PCR NOT DETECTED Not Detect. A not detected test result does not exclude the possibility of infection because test results can be affected by improper specimen collection, concurrent antibiotic therapy, or the number of organisms in the specimen which may be below the sensitivity of the test. As with many diagnostic tests, results from the Xpert CT/NG assay should be interpreted in conjunction with other laboratory and clinical data available to the clinician. Xpert CT/NG performance has not been evaluated in patients less than 14 years of age. The assay should not be used for the evaluation of suspected sexual abuse or for other medico-legal indications. Additional testing is recommended in any circumstance when false positive or false negative results could lead to adverse medical, social or psychological consequences. NG PCR NOT DETECTED Not Detect. A not detected test result does not exclude the possibility of infection because test results can be affected by improper specimen collection, concurrent antibiotic therapy, or the number of organisms in the specimen which may be below the sensitivity of the test. As with many diagnostic tests, results from the Xpert CT/NG assay should be interpreted in conjunction with other laboratory and clinical data available to the clinician. Xpert CT/NG performance has not been evaluated in patients less than 14 years of age. The assay should not be used for the evaluation of suspected sexual abuse or for other medico-legal indications. Additional testing is recommended in any circumstance when false positive or false negative results could lead to adverse medical, social or psychological consequences. Assessment & Plan Assessment & Plan (1) Pelvic pain: Code(s): R10.2 - Pelvic and perineal pain (2) Fibroid uterus: Comment: 1 small, 1.2 cm Code(s): D25.9 - Leiomyoma of uterus, unspecified Plan This tele visit tele visit was conducted in Greenlandic with video there was some freezing of the image occasionally. The patient told me that she had been seen because she was having pelvic pain down low she felt that it was very severe and constant for about 2 months she says it is a little bit better now. She gets more or less regular periods she is not contraceptive thing and she is sexually active she is open to if it occurs. She is 43 years old and has had 2 children delivered vaginally. The pain that she was experiencing and still sometimes has she felt it as constant and lower down in the front of her abdomen. She also says that it was worse when she has sex with her partner and he enters from behind and moves forward. She says that that did not hurt her in the past. I reviewed her symptoms and her test results I did review the ultrasound which showed a small 1.2 cm fibroid and I explained about fibroids and that that could present some discomfort but was not large enough to warrant any kind of intervention. Discussed that there sometimes can be some cyclic changes that occur that might impact on Women's experience of pain throughout their cycle related to ovulation and pre menstrual E but she did not experience it that way. I also compared her previous CT scan that had been done in 2021 to check for the possibility of kidney stones and that was a completely negative benign exam as well. I also reviewed the urinalysis which showed less than 10,000 colony count. I reviewed that basically the findings were not very significant at this point but she may want to keep track of her cycles and see if there is any [place] to when she has the pain that could be explained. Discussed alternating positions for comfort with sexual intimacy. Reviewed that fibroids can grow and if they become very large then they can become problematic but still no intervention usually is recommended for 1 this small. Telehealth Telehealth Location of provider rendering services: practice address Location of patient: other Patient Identification confirmed using: Name, : Yes Telehealth method: video Patient verbally consented to treatment: Yes Patient verbally consented to billing insurance company: Yes Patient informed of any privacy concerns related to visit: Yes Coding Level of Care Code Tele Est Pt Level 3 (58980) Diagnoses Pelvic pain R10.2 Fibroid uterus D25.9 Time Spent (min) 35 Comment 5cr/25 speaking w pt ,video, 5 charting
== END 2023-07-23 11:16 | disposition home or self-care (01) ==
LOC: HO.HWSM 10:20
PROVIDERS: PCP Internal Medicine; Visit Provider Advanced Practice Midwife
DX: R10.2 Pelvic and perineal pain (principal); D25.9 Leiomyoma of uterus, unspecified
CPT/HCPCS: 99213

== ENCOUNTER → 2023-07-23 10:20 | Outpatient (BNVA) | payer OTHER, SELFPAY | PROVIDERS: PCP Internal Medicine; Visit Provider Advanced Practice Midwife ==

== ENCOUNTER 2024-02-29 08:02 | Outpatient (AMB) | payer BC, SELFPAY ==
[2024-02-29 08:15] VITALS: BP 126/82; BMI 31.4
--- NOTE | 2024-02-29 08:15 | MHC.PC.OV ---
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 Accompanied by: Spouse Allergies No Known Allergies Allergy (Verified 02/29/24 08:25) Medication List - Last Reconciled 02/29/24 by Shawna Sy MD No Known Home Meds Tobacco use date assessed: 02/29/24 Dental Screening Dental Screen Date: 02/29/24 Did you have a dental visit in the last 12 months?: No Did you have a dental problem in the last 6 months where you did not have access to dental care?: No Was dental information given to patient?: Patient has dentist HPI HPI Comments History of Present Illness Details This is a 44-year-old female with hypertension and nephrolithiasis that comes accompanied by for her physical exam. Pap smear done November 2023 at [facility] showed mild inflammation and they recommended colposcopy and biopsy. I will refer her to [facility]. Has never had a mammogram. Has never had a colonoscopy and she does prefer to do the Cologuard. Blood pressure stable. Needs ultrasound of the kidneys to check her kidney stones. Complains of muscle cramps and hand paresthesias. Also has venous insufficiency and would like referral for vascular surgery. She also complains of sore throat and started an unknown antibiotic and feels somewhat improved. 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 1. Little interest or pleasure in doing things: not at all 2. Feeling down, depressed, or hopeless: not at all 3. Trouble falling or staying asleep, or sleeping too much: not at all 4. Feeling tired or having little energy: not at all 5. Poor appetite or overeating: not at all 6. Feeling bad about yourself - or that you are a failure or have let yourself or your family down: not at all 7. Trouble concentrating on things, such as reading the newspaper or watching television: not at all 8. Moving or speaking so slowly that other people could have noticed. Or the opposite - being so fidgety or restless that you have been moving around a lot more than usual: not at all 9. Thoughts that you would be better off or of hurting yourself in some way: not at all Total score: 0 Depression Screening Interpretation: Negative Depression Screening Done: Yes 41112 - PHQ-9 Billing: Yes Source: Developed by Drs. Zion Valadez, Lilli Blount, Arpit Ford and colleagues, with an educational elise from [employer]. Thrive Questionnaire Date Thrive assessed: 02/29/24 I am a: Patient What is your living situation today?: I have a steady place to live Within the past 12 months, did the food you bought not last and you didn't have the money to get more?: Never true Within the past 12 months, did you worry whether your food would run out before you got money to buy more?: Never true Do you have trouble paying for medicines?: No Do you have trouble getting transportation to medical appointments?: No Do you have trouble paying your heating and electricity bill?: No Do you have trouble taking care of your child, family member or friend?: No Do you have trouble with day-to-day activities such as bathing, preparing meals, shopping, managing finances, etc.?: No Are you currently unemployed and looking for a job?: No Are you interested in more education?: No Please select the resources that you would like help with: None Currently or been in a relationship where the following occur: No concerns reported THRIVE Score: 0 AUDIT C Alcohol Use Questionnaire (AUDIT-C) 1. How often do you have a drink containing alcohol?: Never Total Score: 0 Score Reviewed/Action Taken: No NICHELLE-7 AMB Questionnaire NICHELLE-7 Date NICHELLE - 7 assessed: 02/29/24 Feeling nervous, anxious, or on edge: 0 = Not at all Not being able to stop or control worryin = Not at all Worrying too much about different things: 0 = Not at all Trouble relaxin = Not at all Being so restless that it is hard to sit still: 0 = Not at all Becoming easily annoyed or irritable: 0 = Not at all Feeling afraid as if something awful might happen: 0 = Not at all Total NICHELLE-7 score (0-4 normal; 5-9 mild; 10-14 moderate; 15-21 severe): 0 Source: Developed by Drs. Zion Valadez, Lilli Blount, Arpit Ford and colleagues, with an educational elise from [employer]. NICHELLE-7 Assessment Billing NICHELLE-7 Assessment Tool: NICHELLE-7 Assessment 97391 Review of Systems Const All systems reviewed & are unremarkable except as noted in HPI and below Card Denies chest pain at rest, Denies chest pain with activity, Denies edema, Denies irregular heart rhythm, Denies claudication, Denies dyspnea, Denies dyspnea on exertion, Denies orthopnea, Denies paroxysmal nocturnal dyspnea and Denies slow heart rate Resp Denies cough, Denies dyspnea and Denies dyspnea on exertion GI Denies abdominal pain, Denies change in bowel habits, Denies excessive flatus, Denies nausea and Denies vomiting Neuro Denies behavioral changes and Denies lack of coordination Psych Denies behavioral changes Physical exam (Primary Care) Vital Signs: Last Vital Signs BP 126/82 02/29/24 08:15 BMI result Body Mass Index 31.4 Tobacco/Smoking Status: Tobacco use Status Tobacco use date assessed 02/29/24 02/29/24 08:22 Patient Tobacco Use Status Never used Tobacco 02/29/24 08:22 e-Cigarette/Vaping Use Never Used 02/29/24 08:22 PHQ-9: PHQ-9 Score PHQ-9: Total score 0 02/29/24 08:28 Depression Screening Interpretation: Negative Thrive Assessment: Date of Thrive Assessment Date Thrive assessed 02/29/24 02/29/24 08:22 Currently or been in a relationship where the following occur: No concerns reported [facility] Head: Yes normal to inspection, Yes normocephalic and Yes atraumatic Ears: external ears normal General nose exam: Normal external nose present and No nasal discharge present Face and sinus: Yes sinuses nontender Mouth: lip normal Eyes General: appearance normal, both eyes and all related structures Eyelids: Yes eyelids normal Conjunctivae: conjunctivae normal Neck Neck: Yes normal visual inspection and Yes supple Resp Effort & Inspection: normal respiratory effort Auscultation: clear to auscultation bilaterally Cardio Jugular venous distension: no JVD Rate: regular rate Rhythm: regular rhythm Heart sounds: S1 normal heart sound present and S2 normal heart sound present GI Inspection: Yes normal to inspection Palpation (GI): Soft to palpation and nontender Auscultation: normal bowel sounds Skin General skin exam: no rashes or lesions noted Neuro General: no focal motor deficits Extrem General: Yes full ROM Psych Appearance: grossly normal Assessment and Plan Assessment & Plan (1) Physical exam: Code(s): Z00.00 - Encounter for general adult medical examination without abnormal findings Plan: Repeat in a year. (2) Abnormal Pap smear of cervix: Code(s): R87.619 - Unspecified abnormal cytological findings in specimens from cervix uteri Plan: Referred to OBGYN. (3) Muscle cramps: Code(s): R25.2 - Cramp and spasm Plan: Check magnesium. (4) URI (upper respiratory infection): Code(s): J06.9 - Acute upper respiratory infection, unspecified Plan: Start amoxicillin. (5) Paresthesia of hand, bilateral: Code(s): R20.2 - Paresthesia of skin Plan: Nerve conduction study ordered. (6) Venous (peripheral) insufficiency: Code(s): I87.2 - Venous insufficiency (chronic) (peripheral) Plan: Referred to vascular surgery. (7) Nephrolithiasis: Code(s): N20.0 - Calculus of kidney Plan: Ultrasound renal ordered. Orders: Orders NE nerve conduction velocity Today R20.2 - Paresthesia of skin Magnesium Today R25.2 - Cramp and spasm US renal BI Today N20.0 - Calculus of kidney MM screening mammo BI Today Z12.31 - Encounter for screening mammogram for malignant neoplasm of breast Vitamin D 25-OH Total Today E55.9 - Vitamin D deficiency, unspecified Vitamin B12 and Folate Today E53.8 - Deficiency of other specified B group vitamins, R20.2 - Paresthesia of skin Lipid Panel Today Z00.00 - Encounter for general adult medical examination without abnormal findings Comprehensive [place]. Panel Fast Today Z00.00 - Encounter for general adult medical examination without abnormal findings Referrals COMPENSATION AND BENEFITS ADMINISTRATOR Referral R87.619 - Unspecified abnormal cytological findings in specimens from cervix uteri Vascular Surgery Referral I87.2 - Venous insufficiency (chronic) (peripheral) Cologuard Test Z12.11 - Encounter for screening for malignant neoplasm of colon, Z12.12 - Encounter for screening for malignant neoplasm of rectum Medications: New amoxicillin 500 mg PO Q12H 10 caps 0RF 5 days J06.9 - Acute upper respiratory infection, unspecified candesartan-hydrochlorothiazid 32-25 mg 1 tab PO DAILY 90 tabs 1RF 90 days Coding Level of Care Code Est Pt Level 4 (09290) Est Pt Prev Care 40-64y(32436) Diagnoses Physical exam Z00.00 Abnormal Pap smear of cervix R87.619 Muscle cramps R25.2 URI (upper respiratory infection) J06.9 Paresthesia of hand, bilateral R20.2 Venous (peripheral) insufficiency I87.2 Nephrolithiasis N20.0 Additional Codes NICHELLE-7 Assessment Billing - NICHELLE-7 Assessment Tool: NICHELLE-7 Assessment 39326 ([id number]) Time Spent (min) 40
== END 2024-02-29 08:44 | disposition home or self-care (01) ==
PROVIDERS: Visit Provider Internal Medicine
DX: Z00.00 Encounter for general adult medical examination without abnormal findings (principal); R87.619 Unspecified abnormal cytological findings in specimens from cervix uteri; R25.2 Cramp and spasm; J06.9 Acute upper respiratory infection, unspecified; R20.2 Paresthesia of skin; I87.2 Venous insufficiency (chronic) (peripheral); N20.0 Calculus of kidney
CPT/HCPCS: 99214; 99396

== ENCOUNTER 2024-03-04 10:53 | Outpatient (REF) | payer BC, SELFPAY ==
[2024-03-04 12:03] LABS: Alanine Aminotransferase 13 U/L (0-31); Albumin Level 3.6 g/dL (3.5-5.0); Alkaline Phosphatase 78 U/L (39-117); Anion Gap 10 (12-20); Aspartate Amino Transferase 17 U/L (5-31); Bilirubin Total 0.4 mg/dL (0.0-1.0); Blood Urea Nitrogen 12 mg/dL (9-16); Carbon Dioxide 27 mmol/L (22-29); Chloride 107 mmol/L (96-108); Cholesterol 200 mg/dL (<200); Estimated Glomerular Filt Rate > 60; Glucose Fasting 105 mg/dL (60-99); HDL Cholesterol 36 mg/dL (>40); LDL Cholesterol Calculated 140 mg/dL (<100); Magnesium 1.9 mg/dL (1.6-2.6); Potassium 3.7 mmol/L (3.3-5.1); Sodium 140 mmol/L (135-145); Total Protein 7.4 g/dL (6.5-8.0); Triglycerides 121 mg/dL (<150)
[2024-03-04 12:20] LABS: Vitamin D 25-OH Total 37.3 ng/mL (>30)
[2024-03-04 12:33] LABS: Folate 9.9 ng/mL (> or = 4.0); Vitamin B12 851 pg/mL (200-900)
== END 2024-03-04 10:54 | disposition home or self-care (01) ==
LOC: HO.LAB 10:53
PROVIDERS: PCP Internal Medicine; Visit Provider Internal Medicine
DX: Z00.00 Encounter for general adult medical examination without abnormal findings (principal); Z13.6 Encounter for screening for cardiovascular disorders; E55.9 Vitamin D deficiency, unspecified; E53.8 Deficiency of other specified B group vitamins; R20.2 Paresthesia of skin; R25.2 Cramp and spasm
CPT/HCPCS: 36415; 80053; 80061; 82306; 82607; 82746; 83735

== ENCOUNTER → 2024-03-17 08:00 | Outpatient (BNV) | payer BC, SELFPAY | PROVIDERS: PCP Internal Medicine; Visit Provider Radiology Diagnostic Radiology | DX: Z12.31 Encounter for screening mammogram for malignant neoplasm of breast (principal) | CPT/HCPCS: 77063; 77067 ==

== ENCOUNTER 2024-03-17 08:10 | Outpatient (REF) | payer BC, SELFPAY ==
--- NOTE | ~2024-03-17 | MM_ITS ---
EXAMINATION: MM SCREENING DIGITAL BREAST TOMOSYNTHESIS, BILATERAL CLINICAL INFORMATION: Screening. Asymptomatic. COMPARISON: Mammography: This is a baseline mammogram. TECHNIQUE: Digital breast tomosynthesis is performed in both the craniocaudal and mediolateral oblique views along with computer-aided detection (CAD). Synthesized 2D images are generated from the tomosynthesis. FINDINGS: There are scattered areas of fibroglandular density (ACR BI-RADS breast composition Category b). There are no significant masses, abnormal calcifications, or other abnormalities. MM/MM tomosynthesis screening BI IMPRESSION: No mammographic evidence of malignancy. ASSESSMENT: BI-RADS BI-RADS 1 - Negative RECOMMENDATION: Routine annual mammography screening. 1 year F/U This examination should not preclude the clinical evaluation of a suspicious palpable abnormality. This patient's information was entered into a reminder system with a target due date for their next mammogram. Electronically signed by: Lissette Barrera MD 04/15/2024 03:15 PM EDT
--- NOTE | ~2024-03-17 | US_ITS ---
EXAMINATION: US RETROPERITONEAL COMPLETE (RENAL) CLINICAL INFORMATION: Renal calculus. COMPARISON: Renal ultrasound 05/05/2023, CT abdomen and pelvis 09/04/2021. TECHNIQUE: Real-time imaging of the kidneys FINDINGS: RIGHT KIDNEY: 12.0 x 4.8 x 6.2 cm (SAG x AP x TRV). The kidney is normal in size, contour, and echogenicity. Renal cortical thickness is normal. No calculi or focal parenchymal lesions. No hydronephrosis. LEFT KIDNEY: 10.8 x 4.2 x 5.6 cm (SAG x AP x TRV). The kidney is normal in size, contour, and echogenicity. Renal cortical thickness is normal. No calculi or focal parenchymal lesions. There is mild pelvic fullness but no gross hydronephrosis. US/US renal BI IMPRESSION: No renal calculi are seen. There is mild fullness of the left renal pelvis but no gross hydronephrosis. Electronically signed by: Ramesh Graham MD 04/04/2024 12:35 AM EDT
== END 2024-03-17 08:11 | disposition home or self-care (01) ==
LOC: HO.MAMMO 08:10
PROVIDERS: PCP Internal Medicine; Visit Provider Internal Medicine
DX: N20.0 Calculus of kidney (principal); Z12.31 Encounter for screening mammogram for malignant neoplasm of breast
CPT/HCPCS: 76775; 77063; 77067

== ENCOUNTER 2024-04-20 10:20 | Outpatient (REF) | payer BC, SELFPAY ==
--- NOTE | ~2024-04-20 | US_ITS ---
EXAMINATION: US LOWER EXTREMITY VENOUS (REFLUX EXAM), BILATERAL CLINICAL INFORMATION: Chronic venous insufficiency with lower extremity varicose veins, pain COMPARISON: None. TECHNIQUE: Color flow triplex imaging and compression Doppler was performed to evaluate both the deep and the superficial systems bilaterally. To evaluate the superficial system, the examination was performed in the upright position. Color-flow Doppler ultrasound and compression ultrasound were utilized. In addition, maneuvers were utilized to demonstrate reflux. FINDINGS: 1. DEEP VENOUS ULTRASOUND OF THE RIGHT LOWER EXTREMITY: Common Femoral Vein: Compressible, normal respiratory variation and augmented flow. Femoral Vein: Compressible, normal color flow and augmentation. Popliteal Vein: Compressible, normal augmentation. Deep Reflux: There is no evidence of reflux in the deep system in either the common femoral vein, superficial femoral or the popliteal vein. There is no evidence of a Cruz's cyst. 2. SUPERFICIAL ULTRASOUND WITH DOPPLER OF RIGHT LOWER EXTREMITY: GREAT SAPHENOUS VEIN: Saphenofemoral Junction: 0.7 cm; Reflux: 0 ms Proximal Thigh: 0.3 cm; Reflux: 0 ms Mid Thigh: 0.3 cm; Reflux: 0 ms Distal Thigh: 0.3 cm; Reflux: 0 ms At Knee: 0.3 cm; Reflux: 0 ms Proximal Calf: 0.1 cm; Reflux: 0 ms Mid Calf: 0.1 cm; Reflux: 0 ms Distal Calf: 0.2 cm; Reflux: 0 ms DUPLICATED MEDIAL GREAT SAPHENOUS VEIN: Diameter: None imaged Reflux: NA DUPLICATED LATERAL GREAT SAPHENOUS VEIN: Diameter: None imaged Reflux: NA SMALL SAPHENOUS VEIN: Saphenopopliteal Junction: 0.1 cm; Reflux: 0 ms Proximal: 0.2 cm; Reflux: 0 ms Distal: 0.2 cm; Reflux: 0 ms VEIN OF GIACOMINI: Size: NA Reflux: NA PERFORATORS: Location: Posterior calf into the small saphenous vein Size: 0.2 cm Reflux: 2876 ms VARICOSITIES: Location: Posterior calf of the small saphenous vein Size: 0.3 cm Reflux: None 3. DEEP VENOUS ULTRASOUND OF THE LEFT LOWER EXTREMITY: Common Femoral Vein: Compressible, normal respiratory variation and augmented flow. Femoral Vein: Compressible, normal color flow and augmentation. Popliteal Vein: Compressible, normal augmentation. Deep Reflux: There is no evidence of reflux in the deep system in either the common femoral vein, superficial femoral or the popliteal vein. Cruz's cyst cyst in the left popliteal fossa measuring 1.8 x 1.0 x 1.2 cm 4. SUPERFICIAL ULTRASOUND WITH DOPPLER OF LEFT LOWER EXTREMITY: GREAT SAPHENOUS VEIN: Saphenofemoral Junction: 0.7 cm; Reflux: 0 ms Proximal Thigh: 0.2 cm; Reflux: 0 ms Mid Thigh: 0.3 cm; Reflux: 0 ms Distal Thigh: 0.2 cm; Reflux: 0 ms At Knee: 0.2 cm; Reflux: 0 ms Proximal Calf: 0.2 cm; Reflux: 0 ms Mid Calf: 0.1 cm; Reflux: 0 ms Distal Calf: 0.2 cm; Reflux: 0 ms DUPLICATED MEDIAL GREAT SAPHENOUS VEIN: Diameter: None imaged Reflux: NA DUPLICATED LATERAL GREAT SAPHENOUS VEIN: Diameter: 0.3 cm Reflux: None SMALL SAPHENOUS VEIN: Saphenopopliteal Junction: 0.2 cm; Reflux: 0 ms Proximal: 0.2 cm; Reflux: 0 ms Distal: 0.2 cm; Reflux: 0 ms VEIN OF GIACOMINI: Size: NA Reflux: NA PERFORATORS: Location: None imaged Size: NA Reflux: NA VARICOSITIES: Location: None significant Size: NA Reflux: NA US/US venous insuf bilat IMPRESSION: 1. Right: No significant superficial venous insufficiency or reflux. 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 2. Left: No significant superficial venous insufficiency or reflux. Small Cruz's cyst in the left popliteal fossa. Electronically signed by: Julius Lai MD 04/26/2024 04:05 PM EDT
== END 2024-04-20 10:21 | disposition home or self-care (01) ==
LOC: HO.US 10:20
PROVIDERS: PCP Internal Medicine; Visit Provider Surgery Vascular Surgery
DX: I83.813 Varicose veins of bilateral lower extremities with pain (principal)
CPT/HCPCS: 93970

== ENCOUNTER 2024-05-02 08:17 | Outpatient (REF) | payer BC, SELFPAY ==
--- NOTE | 2024-05-02 08:21 | EMG_ITS ---
Bilateral median and ulnar motor and sensory studies were performed. Bilateral radial and median and lateral antecubital brachial sensory studies were performed, and paraspinal muscles were tested with a needle. IMPRESSION: Mild right median neuropathy across carpal tunnel. Otherwise, no significant abnormality noted. MD TIEN Best/JARAD / [id number]
== END 2024-05-02 08:18 | disposition home or self-care (01) ==
LOC: HO.NEURO 08:17
PROVIDERS: PCP Internal Medicine; Visit Provider Internal Medicine
DX: R20.2 Paresthesia of skin (principal)
CPT/HCPCS: 95886; 95913

== ENCOUNTER 2024-05-18 08:55 | Outpatient (AMB) | payer BC, SELFPAY ==
--- NOTE | 2024-05-18 08:59 | A.OFFVIS_ITS ---
Intake Visit Reasons: follow up s/p 04/20/24 Intake Note: Patient presents for follow up. She states both of her ankles are swelling and that her feet and toes cramp. Allergies No Known Allergies Allergy (Verified 02/29/24 08:25) [facility] HPI follow up s/p 04/20/24: Details: Very pleasant 44-year-old female presents for follow-up regarding venous insufficiency. She did complain of some swelling and discomfort in particular the ankles. She has prior scleral injections in the [place]. She also has had prescription compression stockings since that time. She now presents for follow-up with venous insufficiency testing. 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 Family History Mother Hypertension Diabetes Father Diabetes Cardiomegaly Social History Housing: Apartment Alcohol intake: never Patient Tobacco Use Status: Never used Tobacco e-Cigarette/Vaping Use: Never Used Second Hand Smoke Exposure: No service: No Current occupational status: employed Current occupational exposures/hazards: No Cognitive needs: No Hearing needs: No Vision needs: Yes (glasses) Review of Systems Const All systems reviewed & are unremarkable except as noted in HPI and below Reports no additional complaints ENT Reports Normal hearing present Card Denies chest pain, Denies chest pain at rest, Denies chest pain with activity and Denies pedal edema Resp Denies cough GI Denies abdominal pain Musc Denies abnormal gait, Denies muscle cramps and Denies radiating pain into limb Skin/Breast Denies skin ulcer and Denies wounds Neuro Reports Normal hearing present and Denies abnormal gait Psych Reports no additional complaints Physical Exam Const General: cooperative, healthy appearing and comfortable Orientation/consciousness: oriented to person, oriented to place and oriented to time HEENT Head: Yes normal to inspection Neck Neck: Yes normal visual inspection Carotids: no bruits Chest Chest palpation & inspection: normal inspection of the chest Resp Effort & Inspection: normal respiratory effort and able to speak in complete sentences Auscultation: clear to auscultation bilaterally, no crackles, no rales, no rhonchi and no wheezes Cardio Rate: regular rate Rhythm: regular rhythm Heart sounds: S1 normal heart sound present and S2 normal heart sound present Bruits: no carotid bruits Peripheral pulses: Peripheral pulses 2+ throughout GI Inspection: Yes normal to inspection Skin Wounds: no wounds Hair: normal Neuro General: oriented to person, oriented to place and oriented to time Cranial nerves: Yes CN's II-XII intact bilaterally and Yes Normal hearing present Cognition (Neuro): normal cognition Motor exam (neuro): 5/5 motor strength present throughout Extrem Other: venous exam: +1 edema General: No clubbing, No cyanosis and Yes edema Psych Appearance: grossly normal Mental Status: mental status grossly normal Speech and movement: Normal speech and movement present Results Reviewed Results Reviewed: Brief summary of venous insufficiency testing is as follows: right great saphenous vein: negative right small saphenous vein: negative right accessory vein: none present left great saphenous vein: negative left small saphenous vein: negative left accessory vein: none present Please note there is no evidence of any venous aneurysms or significant tortuosity Assessment & Plan Assessment & Plan (1) Varicose veins of right lower extremity with inflammation: Code(s): I83.11 - Varicose veins of right lower extremity with inflammation Category: Medical Plan: In short patient is negative for any significant venous insufficiency. At the current time she does have some spider telangiectasias that may need cosmetic intervention. From our perspective would continue conservative measures including compression, elevation, exercise. She can follow up with us on an as- needed basis. Thank you for allowing us to assist in her care. If there are any questions or concerns please do not hesitate to contact us Coding Level of Care Code Est Pt Level 4 (67179) Diagnoses Varicose veins of right lower extremity with inflammation I83.11
== END 2024-05-18 09:19 | disposition home or self-care (01) ==
PROVIDERS: PCP Internal Medicine; Visit Provider Surgery Vascular Surgery
DX: I83.11 Varicose veins of right lower extremity with inflammation (principal)
CPT/HCPCS: 99214

== ENCOUNTER → 2024-05-18 08:55 | Outpatient (BNVA) | payer BC, SELFPAY | PROVIDERS: PCP Internal Medicine; Visit Provider Surgery Vascular Surgery ==

== ENCOUNTER 2024-06-22 16:32 | Outpatient (AMB) | payer BC, SELFPAY ==
--- NOTE | 2024-06-22 16:40 | A.OFFPC_ITS ---
Vital Signs 06/22/24 16:41 Height 5 ft 5 in Weight 192 lb BMI 31.9 BP 146/100 H Blood Pressure Location Lt brachial Position Sitting Intake Visit Reasons: 4 month bp ck Intake Note: Patient here for a 4 month follow up bp Garment Inspector Required: No Accompanied by: Daughter Allergies No Known Allergies Allergy (Verified 06/22/24 17:00) Medication List - Last Reconciled 06/22/24 by Shawna Sy MD candesartan-hydrochlorothiazid 32-25 mg 1 tab PO DAILY 90 days Tobacco use date assessed: 02/29/24 Dental Screening Dental Screen Date: 02/29/24 HPI HPI Comments History of Present Illness Details The patient is a 44-year-old female presenting with hypertension management as the primary reason for the visit. The patient has been experiencing elevated blood pressure readings recently, with a noted in-office measurement of 140/100 mmHg. The patient confirms consistent use of prescribed medication, candesartan with hydrochlorothiazide, at the maximum tolerated dose of 32/25 mg. However, the patient reports recurrent hypertension episodes at home, often exceeding 140/90 mmHg, indicating a need for medication adjustment. Previous diagnostic studies, including renal ultrasound and lower extremity duplex ultrasonography, showed no nephrolithiasis or deep vein thrombosis, respectively. 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 Additionally, the patient has carpal tunnel syndrome in the right hand with previous electrodiagnostic testing in May confirming the condition. There is also a history of occasional cramps in the toes. 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 Zion Valadez, Lilli Blount, Arpit Ford and colleagues, with an educational elise from [employer]. Review of Systems Const All systems reviewed & are unremarkable except as noted in HPI and below Card Denies chest pain at rest, Denies chest pain with activity, Denies edema, Denies irregular heart rhythm, Denies claudication, Denies dyspnea, Denies dyspnea on exertion, Denies orthopnea, Denies paroxysmal nocturnal dyspnea and Denies slow heart rate Resp Denies cough, Denies dyspnea and Denies dyspnea on exertion GI Denies abdominal pain, Denies change in bowel habits, Denies excessive flatus, Denies nausea and Denies vomiting Physical exam (Primary Care) Vital Signs: Last Vital Signs BP 146/100 H 06/22/24 16:41 BMI result Body Mass Index 31.9 BMI Assessment/Plan discussion: High BMI High, discussed plan: lifestyle, weight reduction, dietary and physical activity Tobacco/Smoking Status: Tobacco use Status Tobacco use date assessed 02/29/24 06/22/24 16:45 Patient Tobacco Use Status Never used Tobacco 06/22/24 16:45 e-Cigarette/Vaping Use Never Used 06/22/24 16:45 Thrive Assessment: Date of Thrive Assessment Date Thrive assessed 02/29/24 06/22/24 16:45 Resp Effort & Inspection: normal respiratory effort Auscultation: clear to auscultation bilaterally Cardio Jugular venous distension: no JVD Rate: regular rate Rhythm: regular rhythm Heart sounds: S1 normal heart sound present and S2 normal heart sound present Extrem General: Yes full ROM Office Procedures Flu Questionnaire Does the patient have a severe egg allergy?: No Does the patient have severe life threatening allergies?: No Does the patient have a fever or illness today?: No Has the patient ever had Guillain-[place] Syndrome?: No Has the patient ever had any past reaction to a flu shot?: No Immunizations Fluarix Triv [id number] (PF) 45 mcg (15 mcg x 3)/0.5 mL IM syringe Performing Provider: Shawna Sy MD [place] [facility] [place] [place] [facility] Administered by: SILVANO Sood on 06/22/24 17:17 Dose Route Admin Location Dispensed Lot Number Expiration Date [facility] Regional Service Manager 0.5 mL IM Left Deltoid 0.5 mL [id number] 01/29/25 [id number] [place] VIS Given Date VIS Provided VIS Publication Date 06/22/24 Single Vaccine 21 Eligibility Eligibility Date Funding Source Not [facility] Eligible 06/22/24 Private Coding Level of Care Code Est Pt Level 4 (41675) Complex EM visit Add On G2211 Diagnoses Muscle cramps R25.2 Carpal tunnel syndrome of right wrist G56.01 Hypertension I10 Class 1 obesity with body mass index (BMI) of 32.0 to 32.9 in adult E66.811; Z68.32 Time Spent (min) 23 Assessment & Plan Assessment & Plan (1) Muscle cramps: Code(s): R25.2 - Cramp and spasm Category: Medical (2) Carpal tunnel syndrome of right wrist: Code(s): G56.01 - Carpal tunnel syndrome, right upper limb Category: Medical (3) Hypertension: Code(s): I10 - Essential (primary) hypertension Category: Medical (4) Class 1 obesity with body mass index (BMI) of 32.0 to 32.9 in adult: Code(s): E66.811 - Obesity, class 1; Z68.32 - Body mass index [BMI] 32.0-32.9, adult Category: Medical Plan - Essential Hypertension: Increase hydrochlorothiazide dose to 25 mg and add amlodipine at the lowest dose to achieve better blood pressure control. Follow- up in three weeks to reassess blood pressure. Conduct laboratory testing. - Cruz's Cyst: No intervention necessary as it is asymptomatic and expected to remain benign. - Carpal Tunnel Syndrome: Recommend wrist splinting, particularly at night, to alleviate symptoms. - Obesity: Encourage dietary modifications and increase physical activity to aid weight loss and achieve a healthier BMI. Patient was informed and verbally consented to the use of an ambient scribe for clinic note documentation during this visit. I discussed with the patient the need to adjust her hypertensive treatment due to persistently elevated readings. The addition of amlodipine aims to enhance blood pressure control. We discussed the benign nature of Cruz?s cyst and the management of her carpal tunnel syndrome with wrist splinting at night. The importance of weight management through diet and exercise for overall health improvement was emphasized. I advised the patient that medications for cold symptoms might elevate blood pressure and she should discontinue use if blood pressure increases. The patient was agreeable to the proposed management plan and instructions provided. Orders: Orders Lipid Panel Today E78.5 - Hyperlipidemia, unspecified Comprehensive [place]. Panel Fast Today I10 - Essential (primary) hypertension Influenza [id number] Immunization Today Z23 - Encounter for immunization Magnesium Today R25.2 - Cramp and spasm Medications: New candesartan-hydrochlorothiazid 32-25 mg 1 tab PO DAILY 90 days 90 tabs 1RF benzonatate 100 mg PO BID 5 days PRN 10 caps 0RF cough [wrist splint] As directed 1 ea 0RF G56.01 - Carpal tunnel syndrome, right upper limb verapamil ER 120 mg PO DAILY 90 days 90 caps 1RF Discontinued candesartan-hydrochlorothiazid 32-25 mg Discontinued Reason: Patient Completed Course 1 tab PO DAILY 90 days 90 tabs 1RF Patient Instructions: - Start taking an increased dose of hydrochlorothiazide and initiate amlodipine as prescribed. - Use wrist splint at night for carpal tunnel symptoms. - Incorporate at least 30 minutes of exercise five times a week. - Monitor blood pressure regularly at home. - Avoid cold medications that increase blood pressure. - Report any significant worsening of symptoms or side effects from medications. - Return for follow-up and blood pressure assessment in three weeks.
[2024-06-22 16:41] VITALS: BP 146/100; BMI 31.9
== END 2024-06-22 17:15 | disposition home or self-care (01) ==
PROVIDERS: PCP Internal Medicine; Visit Provider Internal Medicine
DX: R25.2 Cramp and spasm (principal); G56.01 Carpal tunnel syndrome, right upper limb; I10 Essential (primary) hypertension; E66.811 Obesity, class 1; Z68.32 Body mass index [BMI] 32.0-32.9, adult; Z23 Encounter for immunization

== ENCOUNTER → 2024-06-22 16:32 | Outpatient (BNVA) | payer BC, SELFPAY | PROVIDERS: PCP Internal Medicine; Visit Provider Internal Medicine | DX: R25.2 Cramp and spasm (principal); G56.01 Carpal tunnel syndrome, right upper limb; I10 Essential (primary) hypertension; E66.811 Obesity, class 1; Z68.32 Body mass index [BMI] 32.0-32.9, adult; Z23 Encounter for immunization | CPT/HCPCS: 90471; 90656 ==

== ENCOUNTER → 2024-08-04 14:13 | Outpatient (BNVA) | payer BC, SELFPAY | PROVIDERS: PCP Internal Medicine ==

== ENCOUNTER 2024-10-24 08:58 | Outpatient (AMB) | payer BC, SELFPAY ==
--- NOTE | 2024-10-24 09:06 | MHC.PC.OV ---
Vital Signs 10/24/24 09:08 Height 5 ft 5 in Weight 202 lb BMI 33.6 BP 150/98 H Blood Pressure Location Lt brachial Position Sitting Intake Visit Reasons: 4 month f/u Intake Note: Patient here for a 4 month follow up bp Samples And Repairs Preparer Required: Yes Samples And Repairs Preparer Language: Plasma Table Operator Name: Shawna Sy MD Information Interpreted: non-clinical & clinical Accompanied by: Spouse Allergies No Known Allergies Allergy (Verified 10/24/24 09:22) Medication List - Last Reconciled 10/24/24 by Shawna Sy MD candesartan-hydrochlorothiazid 32-25 mg 1 tab PO DAILY 90 days verapamil ER 180 mg PO DAILY 90 days [wrist splint As directed] Tobacco use date assessed: 10/24/24 Dental Screening Dental Screen Date: 10/24/24 Did you have a dental visit in the last 12 months?: Yes Did you have a dental problem in the last 6 months where you did not have access to dental care?: No Was dental information given to patient?: Patient has dentist HPI HPI Comments History of Present Illness Details The patient is a 44-year-old female presenting with elevated blood pressure that has been persistently high, though it appears slightly improved compared to prior visits. The patient is prescribed Candesartan-Hydrochlorothiazide and Verapamil but reports inconsistency in medication adherence. Hyperlipidemia is mentioned without sufficient severity for immediate pharmacotherapy. Elevated glucose levels were documented previously, indicating possible impaired glucose tolerance. The patient is aware of these findings and plans for a re-evaluation. A dermatological issue, noted as skin lesions that has not resolved, prompts consideration for further dermatological assessment. Additionally, the patient mentions very yellow urine, raising concern for dehydration despite maintaining hydration status. 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 1. Little interest or pleasure in doing things: not at all 2. Feeling down, depressed, or hopeless: not at all 3. Trouble falling or staying asleep, or sleeping too much: not at all 4. Feeling tired or having little energy: not at all 5. Poor appetite or overeating: not at all 6. Feeling bad about yourself - or that you are a failure or have let yourself or your family down: not at all 7. Trouble concentrating on things, such as reading the newspaper or watching television: not at all 8. Moving or speaking so slowly that other people could have noticed. Or the opposite - being so fidgety or restless that you have been moving around a lot more than usual: not at all 9. Thoughts that you would be better off or of hurting yourself in some way: not at all Total score: 0 Depression Screening Interpretation: Negative Depression Screening Done: Yes 71549 - PHQ-9 Billing: Yes Source: Developed by Drs. Zion Valadez, Lilli Blount, Arpit Ford and colleagues, with an educational elise from [employer]. Thrive Questionnaire Date Thrive assessed: 10/24/24 I am a: Patient What is your living situation today?: I have a steady place to live Within the past 12 months, did the food you bought not last and you didn't have the money to get more?: Never true Within the past 12 months, did you worry whether your food would run out before you got money to buy more?: Never true Do you have trouble paying for medicines?: No Do you have trouble getting transportation to medical appointments?: No Do you have trouble paying your heating and electricity bill?: No Do you have trouble taking care of your child, family member or friend?: No Do you have trouble with day-to-day activities such as bathing, preparing meals, shopping, managing finances, etc.?: No Are you currently unemployed and looking for a job?: No Are you interested in more education?: No Please select the resources that you would like help with: None Currently or been in a relationship where the following occur: No concerns reported THRIVE Score: 0 AUDIT C Alcohol Use Questionnaire (AUDIT-C) 1. How often do you have a drink containing alcohol?: Never Total Score: 0 NICHELLE-7 AMB Questionnaire NICHELLE-7 Date NICHELLE - 7 assessed: 10/24/24 Feeling nervous, anxious, or on edge: 0 = Not at all Not being able to stop or control worryin = Not at all Worrying too much about different things: 0 = Not at all Trouble relaxin = Not at all Being so restless that it is hard to sit still: 0 = Not at all Becoming easily annoyed or irritable: 0 = Not at all Feeling afraid as if something awful might happen: 0 = Not at all Total NICHELLE-7 score (0-4 normal; 5-9 mild; 10-14 moderate; 15-21 severe): 0 Source: Developed by Drs. Zion Valadez, Lilli Blount, Arpit Ford and colleagues, with an educational elise from [employer]. NICHELLE-7 Assessment Billing NICHELLE-7 Assessment Tool: NICHELLE-7 Assessment 25127 Review of Systems Const All systems reviewed & are unremarkable except as noted in HPI and below Card Denies chest pain at rest, Denies chest pain with activity, Denies edema, Denies irregular heart rhythm, Denies claudication, Denies dyspnea, Denies dyspnea on exertion, Denies orthopnea, Denies paroxysmal nocturnal dyspnea and Denies slow heart rate Resp Denies cough, Denies dyspnea and Denies dyspnea on exertion GI Denies abdominal pain, Denies change in bowel habits, Denies excessive flatus, Denies nausea and Denies vomiting Denies urinary incontinence, Denies urinary hesitancy and Denies urinary urgency Neuro Denies lack of coordination Physical exam (Primary Care) Vital Signs: Last Vital Signs BP 150/98 H 10/24/24 09:08 BMI result Body Mass Index 33.6 BMI Assessment/Plan discussion: High BMI High, discussed plan: lifestyle, weight reduction, dietary and physical activity Tobacco/Smoking Status: Tobacco use Status Tobacco use date assessed 10/24/24 10/24/24 09:13 Patient Tobacco Use Status Never used Tobacco 10/24/24 09:13 e-Cigarette/Vaping Use Never Used 10/24/24 09:13 PHQ-9: PHQ-9 Score PHQ-9: Total score 0 10/24/24 09:13 Depression Screening Interpretation: Negative Thrive Assessment: Date of Thrive Assessment Date Thrive assessed 10/24/24 10/24/24 09:13 Currently or been in a relationship where the following occur: No concerns reported Resp Effort & Inspection: normal respiratory effort Auscultation: clear to auscultation bilaterally Cardio Jugular venous distension: no JVD Rate: regular rate Rhythm: regular rhythm Heart sounds: S1 normal heart sound present and S2 normal heart sound present Skin Lesions: lesion noted (dark spots) Extrem General: Yes full ROM Coding Level of Care Code Est Pt Level 4 (50067) Complex EM visit Add On G2211 Diagnoses Hypertension I10 Contraception management Z30.9 Skin lesion L98.9 Dyslipidemia E78.5 Impaired glucose tolerance R73.02 Additional Codes PHQ-9 - 97288 - PHQ-9 Billing: Yes ([id number]) NICHELLE-7 Assessment Billing - NICHELLE-7 Assessment Tool: NICHELLE-7 Assessment 30413 ([id number]) Time Spent (min) 23 Assessment & Plan Assessment & Plan (1) Hypertension: Code(s): I10 - Essential (primary) hypertension Category: Medical (2) Contraception management: Code(s): Z30.9 - Encounter for contraceptive management, unspecified Category: Medical (3) Skin lesion: Code(s): L98.9 - Disorder of the skin and subcutaneous tissue, unspecified Category: Medical (4) Dyslipidemia: Code(s): E78.5 - Hyperlipidemia, unspecified Category: Medical (5) Impaired glucose tolerance: Code(s): R73.02 - Impaired glucose tolerance (oral) Category: Medical Plan I have decided to increase the Verapamil dosage to manage hypertension more effectively while ensuring that current hypertension therapy is maintained. The patient was counseled about the importance of adhering to this medication regimen. A follow-up for blood glucose and lipid levels is planned due to previous indications of hyperglycemia and hyperlipidemia. Although the lipid levels are not critical, I encouraged lifestyle changes. I advised monitoring fluid intake to address concerns regarding potential dehydration. A dermatology referral is made to evaluate the persistent rash. I also addressed family planning concerns and will facilitate a referral to gynecology for contraception management. Patient was informed and verbally consented to the use of an ambient scribe for clinic note documentation during this visit. I discussed with the patient the importance of managing hypertension and the reasons for increasing Verapamil dosage, emphasizing the benefit of consistent medication use and potential risks of poorly managed hypertension. We reviewed blood glucose levels and planned repeat testing to better assess any need for potential intervention. I reassured the patient about the yellow urine possibly being a sign of mild dehydration and reinforced the need for adequate hydration. Detailed discussions were held about contraception options, quickly addressing her concerns about family planning. The patient will be referred to dermatology for rash evaluation and to gynecology for contraception management. All options were explained clearly, focusing on their benefits and anticipated outcomes, with follow-up scheduled in three weeks. Orders: Orders Lipid Panel Today E78.5 - Hyperlipidemia, unspecified Comprehensive [place]. Panel Fast Today I10 - Essential (primary) hypertension Referrals [employer] Referral Z30.9 - Encounter for contraceptive management, unspecified Dermatology Referral L98.9 - Disorder of the skin and subcutaneous tissue, unspecified Medications: New verapamil ER 240 mg PO DAILY 90 days 90 caps 1RF Discontinued verapamil ER Discontinued Reason: Patient Completed Course 180 mg PO DAILY 90 days 90 caps 1RF Patient Instructions: - Take all blood pressure medications as prescribed, including increased Verapamil dosage. - Return for repeat blood glucose and cholesterol tests as scheduled. - Increase fluid intake to manage potential dehydration. - Follow up with dermatology for rash assessment. - Consult with gynecology for contraception planning. - Report any new chest pain or shortness of breath immediately. - Maintain a healthy lifestyle focusing on diet and exercise adjustments to manage blood pressure and cholesterol. - Schedule a follow-up visit in three weeks.
[2024-10-24 09:08] VITALS: BP 150/98; BMI 33.6
--- OUTSIDE RECORDS SUMMARY | 2024-10-24 09:47 | XMS_ITS | Clinical Summary ---
Author Organization [employer] Address [address] [place] [address] Care Team Providers Care Printer Slotter Operator Name Role Phone Unavailable Primary Care Provider Unavailabl e Encounters Date Type Department Care Team Description 08/08/2024 Telephone [facility] [address] [place] [address] James Altman MD from Last 3 Months Social History Tobacco Use Types Packs/Day Years Used Date Smoking Tobacco: Never Assessed Comments Unknown Sex and Gender Information Value Date Recorded Sex Assigned at Not on file Legal Sex Female 1:23 PM EDT Gender Identity Not on file Sexual Orientation Not on file Plan of Treatment Health Maintenance Due Date Last Done Comments CT Colonography 1979 Colonoscopy 1979 Colorectal Cancer Screening 1979 Depression Screening 1979 FIT DNA/Cologuard 1979 FIT 1979 FOBT 1979 HIV Screening 1979 SDOH Screening 1979 Sigmoidoscopy 1979 Alcohol/Substance Use Screening 1991 Tobacco Screening 1991 Family Planning (PISQ) 1994 Hepatitis C Screening 1997 DTaP/Tdap/Td Vaccines (1 - Tdap) 1998 Hepatitis B Vaccines (1 of 3 - 19+ 3-dose series) 1998 Pap Smear 02/08/2000 Cervical Cancer Screening 2009 HPV/Cotest 2009 Mammogram 2019 COVID-19 Vaccine (1 - 2023-2 5 season) 2024 Influenza Vaccine (#1) 2024 Zoster Vaccines (1 of 2) 2029 RSV Patients and Pa tients Aged 60 years or older (1 - 1-dose 75+ series) 2054 HIB Vaccines Aged Out No longer eligi ble based on patient's age to complete this topic HPV Vaccines Aged Out No longer eligi ble based on patient's age to complete this topic Hepatitis A Vaccines Aged Out No long er eligible based on patient's age to complete this topic IPV Vaccines Aged Out No longer eligi ble based on patient's age to complete this topic Meningococcal Vaccine Aged Out No dejuan elaine eligible based on patient's age to complete this topic Pneumococcal Vaccine: Pediat rics (0 to 5 Years) and At-Risk Patients (6 to 49) Years) Aged Out No longer eligible b ased on patient's age to complete this topic RSV under 20 months Aged Out No longe r eligible based on patient's age to complete this topic Rotavirus Vaccines Aged Out No longer eligible based on patient's age to complete this topic
== END 2024-10-24 09:32 | disposition home or self-care (01) ==
LOC: HO.HMCH 08:59
PROVIDERS: PCP Internal Medicine; Visit Provider Internal Medicine
DX: I10 Essential (primary) hypertension (principal); Z30.9 Encounter for contraceptive management, unspecified; L98.9 Disorder of the skin and subcutaneous tissue, unspecified; E78.5 Hyperlipidemia, unspecified; R73.02 Impaired glucose tolerance (oral)

== ENCOUNTER → 2024-10-24 08:58 | Outpatient (BNVA) | payer BC, SELFPAY | PROVIDERS: PCP Internal Medicine; Visit Provider Internal Medicine | DX: I10 Essential (primary) hypertension (principal); L98.9 Disorder of the skin and subcutaneous tissue, unspecified; E78.5 Hyperlipidemia, unspecified; R73.02 Impaired glucose tolerance (oral); Z30.9 Encounter for contraceptive management, unspecified; Z79.899 Other long term (current) drug therapy | CPT/HCPCS: 96127 ==

== ENCOUNTER 2025-03-08 15:49 | Outpatient (AMB) | payer BC, SELFPAY ==
[2025-03-08 15:51] VITALS: BP 112/74; BMI 32.9
--- NOTE | 2025-03-08 15:51 | A.OFFPC_ITS ---
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 The dizziness began approximately one week ago and was initially severe, requiring the patient to sit down to prevent falling. The dizziness has improved since discontinuing spironolactone, which was prescribed for acne, suggesting a possible link between the medication and the symptom. Blood pressure readings have been stable, with a recent measurement of 112/74 mmHg, although a previous reading was 114/65 mmHg. The patient has a history of hypertension, managed with candesartan and hydrochlorothiazide, and verapamil. She denies any allergies to medications and has undergone retinal surgery in the past. Family history is significant for diabetes and hypertension in her mother, and cardiomegaly and diabetes in her father. The patient does not smoke or consume alcohol. Preventative care measures include a recent mammogram and a planned Cologuard test for colon cancer screening. 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 1. Little interest or pleasure in doing things: not at all 2. Feeling down, depressed, or hopeless: not at all 3. Trouble falling or staying asleep, or sleeping too much: not at all 4. Feeling tired or having little energy: several days 5. Poor appetite or overeating: not at all 6. Feeling bad about yourself - or that you are a failure or have let yourself or your family down: not at all 7. Trouble concentrating on things, such as reading the newspaper or watching television: not at all 8. Moving or speaking so slowly that other people could have noticed. Or the opposite - being so fidgety or restless that you have been moving around a lot more than usual: not at all 9. Thoughts that you would be better off or of hurting yourself in some way: not at all Total score: 1 Depression Screening Interpretation: Negative Depression Screening Done: Yes 36768 - PHQ-9 Billing: Yes Source: Developed by Drs. Zion Valadez, Arpit Gutiérrez and colleagues, with an educational elise from [email or web address]. Thrive Questionnaire Date Thrive assessed: 03/08/25 I am a: Patient What is your living situation today?: I have a steady place to live THRIVE Score: 0 NICHELLE-7 AMB Questionnaire NICHELLE-7 Date NICHELLE - 7 assessed: 10/24/24 Source: Developed by Drs. Zion Valadez, Arpit Gutiérrez and colleagues, with an educational elise from [email or web address]. Review of Systems Const All systems reviewed & are unremarkable except as noted in HPI and below Card Denies chest pain at rest, Denies chest pain with activity, Denies edema, Denies irregular heart rhythm, Denies claudication, Denies dyspnea, Denies dyspnea on exertion, Denies orthopnea, Denies paroxysmal nocturnal dyspnea and Denies slow heart rate Resp Denies cough, Denies dyspnea and Denies dyspnea on exertion GI Denies abdominal pain, Denies change in bowel habits, Denies excessive flatus, Denies nausea and Denies vomiting Denies urinary incontinence, Denies urinary hesitancy and Denies urinary urgency Musc Denies abnormal gait, Denies atrophy, Denies deformity and Denies limited range of motion Skin/Breast Denies bleeding lesions, Denies changing lesions and Denies rash Neuro Denies abnormal gait, Denies behavioral changes and Denies lack of coordination Psych Denies behavioral changes Physical exam (Primary Care) Vital Signs: Last Vital Signs BP 112/74 03/08/25 15:51 BMI result Body Mass Index 32.9 BMI Assessment/Plan discussion: High BMI High, discussed plan: lifestyle, weight reduction, dietary and physical activity Tobacco/Smoking Status: Tobacco use Status Tobacco use date assessed 10/24/24 03/08/25 15:57 Patient Tobacco Use Status Never used Tobacco 03/08/25 15:57 e-Cigarette/Vaping Use Never Used 03/08/25 15:57 PHQ-9: PHQ-9 Score PHQ-9: Total score 1 03/08/25 16:09 Depression Screening Interpretation: Negative Thrive Assessment: Date of Thrive Assessment Date Thrive assessed 03/08/25 03/08/25 15:57 HENIL Head: Yes normal to inspection, Yes normocephalic and Yes atraumatic Ears: external ears normal Eyes General: appearance normal, both eyes and all related structures Eyelids: Yes eyelids normal Conjunctivae: conjunctivae normal Neck Neck: Yes normal visual inspection and Yes supple Resp Effort & Inspection: normal respiratory effort Auscultation: clear to auscultation bilaterally Cardio Jugular venous distension: no JVD Rate: regular rate Rhythm: regular rhythm Heart sounds: S1 normal heart sound present and S2 normal heart sound present GI Inspection: Yes normal to inspection Palpation (GI): Soft to palpation and nontender Auscultation: normal bowel sounds Skin General skin exam: no rashes or lesions noted Neuro General: no focal motor deficits Extrem General: Yes full ROM Psych Appearance: grossly normal Immunizations Boostrix Tdap 2.5 Lf unit-8 mcg-5 Lf/0.5 mL intramuscular syringe Performing Provider: Shawna Sy MD Per[facility] Administered by: SILVANO Sood on 03/08/25 16:20 Dose Route Admin Location Dispensed Lot Number Expiration Date NDC [facility] 0.5 mL IM Left Deltoid 0.5 mL [id number] 05/25/27 [id number] Onsite Care Total Dispensed Waste 0.5 mL 0 % VIS Given Date VIS Provided VIS Publication Date 03/08/25 Single Vaccine 24 Eligibility Eligibility Date Funding Source Not VFC Eligible 03/08/25 Private Coding Level of Care Code Est Pt Level 3 (64848) Est Pt Prev Care 40-64y(02489) Diagnoses Physical exam Z00.00 Dizziness R42 Additional Codes PHQ-9 - 85604 - PHQ-9 Billing: Yes ([id number]) Time Spent (min) 33 Assessment & Plan Assessment & Plan (1) Physical exam: Code(s): Z00.00 - Encounter for general adult medical examination without abnormal findings Category: Medical (2) Dizziness: Code(s): R42 - Dizziness and giddiness Category: Medical Plan The plan includes monitoring the patient's blood pressure to ensure stability, given her history of hypertension and recent dizziness episodes. The patient is advised to continue her current antihypertensive medications, candesartan with hydrochlorothiazide and verapamil, while observing for any further dizziness. Regarding acne management, the patient should hold off on spironolactone due to its potential link to dizziness and consider alternative treatments if necessary. Preventative care measures include ensuring the completion of the Cologuard test for colon cancer screening and maintaining regular mammograms. Patient was informed and verbally consented to the use of an ambient scribe for clinic note documentation during this visit. Orders: Orders Lipid Panel Today Z00.00 - Encounter for general adult medical examination without abnormal findings TDaP Immunization Today Z23 - Encounter for immunization Complete Blood Count Auto Diff Today R42 - Dizziness and giddiness Comprehensive [place]. Panel Fast Today Z00.00 - Encounter for general adult medical examination without abnormal findings Referrals Cologuard Test Z12.11 - Encounter for screening for malignant neoplasm of colon, Z12.12 - Encounter for screening for malignant neoplasm of rectum
--- OUTSIDE RECORDS SUMMARY | 2025-03-08 15:52 | XMS_ITS | Clinical Summary ---
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 Role Phone Unavailable Primary Care Provider Unavailabl e Social History Tobacco Use Types Packs/Day Years [...] Screening 1979 SDOH Screening 1979 Sigmoidoscopy 1979 Disability Screening 1979 Alcohol/Substance Use Screening 1991 Tobacco Screening 1991 Family Planning (PISQ) 1994 Hepatitis C Screening 1997 DTaP/Tdap/Td Vaccines (1 - Tdap) 1998 Hepatitis B Vaccines (1 of 3 - 19+ 3-dose series) 1998 Pap Smear 02/08/2000 Cervical Cancer Screening 2009 HPV/Cotest 2009 Mammogram 2019 COVID-19 Vaccine ( - 2023-2 5 season) 2024 Influenza Vaccine (#1) 2025 Zoster Vaccines (1 of 2) 2029 RSV [...] patient's age to complete this topic Meningococcal B Vaccine Aged Out No l onger eligible based on patient's age to complete this topic Meningococcal Vaccine Aged Out No dejuan elaine eligible based on patient's age to complete this topic Pneumococcal Vaccine: Pediat rics (0 to 5 Years) and At-Risk Patients (6 to 49) Years Aged Out No longer eligible b ased on patient's age to complete this topic RSV under 20 months Aged Out No longe r eligible based on patient's age to complete this topic Rotavirus Vaccines Aged Out No longer eligible based on patient's age to complete this topic
== END 2025-03-08 16:21 | disposition home or self-care (01) ==
LOC: HO.HMCH 15:50
PROVIDERS: PCP Internal Medicine; Visit Provider Internal Medicine
DX: Z00.00 Encounter for general adult medical examination without abnormal findings (principal); R42 Dizziness and giddiness; Z23 Encounter for immunization

== ENCOUNTER → 2025-03-08 15:49 | Outpatient (BNVA) | payer BC, SELFPAY | PROVIDERS: PCP Internal Medicine; Visit Provider Internal Medicine | DX: Z00.00 Encounter for general adult medical examination without abnormal findings (principal); Z23 Encounter for immunization; R42 Dizziness and giddiness; Z13.31 Encounter for screening for depression | CPT/HCPCS: 90471; 90715; 96127 ==

== ENCOUNTER 2025-03-10 10:38 | Outpatient (REF) | payer BC, SELFPAY ==
[2025-03-10 10:52] LABS: MANUAL DIFF FLAG NO
[2025-03-10 11:11] LABS: Hematocrit 32.7 % (37.0-47.0); Hemoglobin 11.1 g/dl (12.0-16.0); Imm Gran Abs Auto 0.04 X10*3/uL (0.00-0.03); Imm Gran Pct Auto 0.4 % (0.0-0.4); Lymphocytes Absolute Auto 2.2 X10*3/uL (1.2-4.9); Mean Corpuscular HGB Conc 33.9 g/dl (31.0-35.0); Mean Corpuscular Hemoglobin 27.5 pg (27.0-33.0); Mean Corpuscular Volume 81.1 fL (80.0-98.0); NRBC Abs Auto 0.000 X10*3/uL (0.0-0.012); NRBC Pct Auto 0.0 /100WBC (0.0-0.2); Platelet Count 315 X10*3/uL (160-400); Red Blood Count 4.03 X10*6/uL (4.20-5.50); White Blood Count 10.9 X10*3/uL (4.8-10.8)
[2025-03-10 11:56] LABS: Alanine Aminotransferase 15 U/L (0-31); Albumin Level 3.9 g/dL (3.5-5.0); Alkaline Phosphatase 72 U/L (39-117); Anion Gap 8 (12-20); Aspartate Amino Transferase 24 U/L (5-31); Blood Urea Nitrogen 15 mg/dL (9-16); Calcium 8.6 mg/dL (8.4-10.2); Carbon Dioxide 29 mmol/L (22-29); Chloride 104 mmol/L (96-108); Cholesterol 183 mg/dL (<200); Estimated Glomerular Filt Rate > 60; HDL Cholesterol 35 mg/dL (>40); Potassium 3.9 mmol/L (3.3-5.1); Sodium 137 mmol/L (135-145); Total Protein 7.1 g/dL (6.5-8.0); Triglycerides 130 mg/dL (<150)
== END 2025-03-10 10:39 | disposition home or self-care (01) ==
LOC: HO.LAB 10:38
PROVIDERS: PCP Internal Medicine; Visit Provider Internal Medicine
DX: Z00.00 Encounter for general adult medical examination without abnormal findings (principal); Z13.6 Encounter for screening for cardiovascular disorders; R42 Dizziness and giddiness
CPT/HCPCS: 36415; 80053; 80061; 85025

== ENCOUNTER 2025-03-17 07:39 | Outpatient (REF) | payer BC, SELFPAY ==
[2025-03-17 08:09] LABS: MANUAL DIFF FLAG NO
[2025-03-17 08:24] LABS: Hematocrit 31.7 % (37.0-47.0); Hemoglobin 10.9 g/dl (12.0-16.0); Imm Gran Abs Auto 0.04 X10*3/uL (0.00-0.03); Imm Gran Pct Auto 0.4 % (0.0-0.4); Lymphocytes Absolute Auto 2.0 X10*3/uL (1.2-4.9); Mean Corpuscular HGB Conc 34.4 g/dl (31.0-35.0); Mean Corpuscular Hemoglobin 27.8 pg (27.0-33.0); Mean Corpuscular Volume 80.9 fL (80.0-98.0); NRBC Abs Auto 0.000 X10*3/uL (0.0-0.012); NRBC Pct Auto 0.0 /100WBC (0.0-0.2); Platelet Count 273 X10*3/uL (160-400); Red Blood Count 3.92 X10*6/uL (4.20-5.50); White Blood Count 9.3 X10*3/uL (4.8-10.8)
[2025-03-17 09:06] LABS: Alanine Aminotransferase 10 U/L (0-31); Albumin Level 3.8 g/dL (3.5-5.0); Alkaline Phosphatase 78 U/L (39-117); Anion Gap 12 (12-20); Aspartate Amino Transferase 21 U/L (5-31); Blood Urea Nitrogen 18 mg/dL (9-16); Calcium 9.0 mg/dL (8.4-10.2); Carbon Dioxide 26 mmol/L (22-29); Chloride 105 mmol/L (96-108); Cholesterol 179 mg/dL (<200); Estimated Glomerular Filt Rate > 60; HDL Cholesterol 34 mg/dL (>40); Magnesium 2.0 mg/dL (1.6-2.6); Potassium 4.2 mmol/L (3.3-5.1); Sodium 139 mmol/L (135-145); Total Protein 7.1 g/dL (6.5-8.0); Triglycerides 85 mg/dL (<150)
== END 2025-03-17 07:40 | disposition home or self-care (01) ==
LOC: HO.LAB 07:39
PROVIDERS: PCP Internal Medicine; Visit Provider Internal Medicine
DX: I10 Essential (primary) hypertension (principal); R25.2 Cramp and spasm; E78.5 Hyperlipidemia, unspecified; D64.9 Anemia, unspecified
CPT/HCPCS: 36415; 80053; 80061; 83735; 85025